=== PATIENT | male | born 1965 | race Caucasian/White ===

== ENCOUNTER 2018-05-25 18:02 | Emergency (ER) | payer MEDICARE ==
[~2018-05-25] VITALS: Ht 172.7 cm; Wt 145.2 kg
--- OUTSIDE RECORDS SUMMARY | ~2018-05-25 | XMS | Encounter Summary ---
Demographics + + + | Address | [address] | | | [place] [address] | + + + | Home Phone | | + + + | Preferred Language | Unknown | + + + | Marital Status | Single | + + + | Episcopal Affiliation | CHR | + + + | Race | White | + + + | Ethnic Group | Not or | + + + Author + + + | Author | [facility] | + + + | Organization | [facility] | + + + | Address [...] [place], | | | | | [place] [address] | | + + + + + Care Team Providers + +------+ + | Care Healthcare Advisory Services Manager Name | Role | Phone | + +------+ + | Thalia Georges MD | PCP | | + +------+ + Reason for Visit + + + | Reason | Comments | + + + | Refill Request | | + + + Encounter Details +--------+--------+ + + + | Date | Type | Department | Care Team | Description | +--------+--------+ + + + | 05/15/ | Refill | [facility] | Thalia Georges | Refill Request | | 2018 | | Medical Clinic | MD Fab[address] | | | | | Internal Medicine | [place], | | | | | [address] | [place] [address] | | | | | [place], [place] | [phone] | | | | | [address] | | | | | | [phone] | | | +--------+--------+ + + + Social History + +-------+ [...] | 2017 | Visit | MD Pietro [address] | | | | | | [place] | | | | | | [place] [address] | | | | | | [phone] | | | | | | | | +--------+---------+ + + + | 09/30/ | Office | Hematology & | Vonda Wang, | | | 2017 | Visit | Oncology | [address] | | | | | | [place] | | | | | | [address] | | | | | | [phone] | | | | | | | | +--------+---------+ + + + as of this encounter Visit Diagnoses Not on filein this encounter"
--- OUTSIDE RECORDS SUMMARY | ~2018-05-25 | XMS | Encounter Summary ---
Demographics + + + | Address | [address] | | | [place] [address] | + + + | Home Phone | | + + + | Preferred Language | Unknown | + + + | Marital Status | Single | + + + | Yarsani Affiliation | CHR | + + + | Race | White | + + + | Ethnic Group | Not or | + + + Author + + + | Author | [facility] | + + + | Organization | [facility] | + + + | Address [...] [place], | | | | | [place] [address] | | + + + + + Care Team Providers + +------+ + | Care Social Service Liaison Name | Role | Phone | + [...] Description | +--------+--------+ + + + | 03/28/ | Refill | [facility] | Josee Diamond MD | Refill Request | | 2018 | | Medical Clinic | [address] | | | | | Internal Medicine | [place], [place] | | | | | [address] | [address] | | | | | [place], [place] | [phone] | | | | | [address] | | | | | | [phone] | | | +--------+--------+ + + + [...] [place] | | | | | | [place] | | | | | | [place] [address] | | | | | | [phone] | | | | | | | | +--------+---------+ + + + | 09/30/ | Office | Hematology & | Vonda Wang, | | | 2017 | Visit | Oncology | [address] | | | | | | [place] | | | | | | [address] | | | | | | [phone] | | | | | | | | +--------+---------+ + + + as of this encounter Visit Diagnoses Not on filein this encounter"
--- OUTSIDE RECORDS SUMMARY | ~2018-05-25 | XMS | Encounter Summary ---
Demographics + + + | Address | [address] | | | [place] [address] | + + + | Home Phone | | + + + | Preferred Language | Unknown | + + + | Marital Status | Single | + + + | Yazidi Affiliation | CHR | + + + | Race | White | + + + | Ethnic Group | Not or | + + + Author + + + | Author | [facility] | + + + | Organization | [facility] | + + + | [...] [place], | | | | | [place] [address] | | + + + + + Care Team Providers + +------+ + | Care Ultrasonic Tester Name | Role | Phone | + +------+ + | Thalia Georges MD | PCP | | + +------+ + Reason for Visit + + + | Reason | Comments | + + + | Refill Request | [place] | + + + Encounter Details +--------+--------+ + + + | Date | Type | Department | Care Team | Description | +--------+--------+ + + + | 03/28/ | Refill | [facility] | Celestino Porras MD | Refill Request | | 2018 | | Medical Clinic | [address] | ([place]) | | | | Cardiology [address] | [address] [place], | | | | | [address] | [place] [address] | | | | | [place], [place] | [phone] | | | | | [address] | | | | | | [phone] | | | +--------+--------+ + + + [...] | | | 2017 | Visit | Danyelle Conn MD [address] | | | | | | [place] | | | | | | [place] [address] | | | | | | [phone] | | | | | | | | +--------+---------+ + + + | 09/30/ | Office | Hematology & | Vonda Wang | | | 2017 | Visit | Oncology | [address] | | | | | | [place] | | | | | | [address] | | | | | | [phone] | | | | | | | | +--------+---------+ + + + as of this encounter Visit Diagnoses Not on filein this encounter"
--- OUTSIDE RECORDS SUMMARY | ~2018-05-25 | XMS | Encounter Summary ---
Demographics + + + | Address | [address] | | | [place] [address] | + + + | Home Phone | | + + + | Preferred Language | Unknown | + + + | Marital Status | Single | + + + | Hindu Affiliation | CHR | + + + | Race | White | + + + | Ethnic Group | Not or | + + + Author + + + | Author | [facility] | + + + | Organization | [facility] | + + + | Address [...] [place], | | | | | [place] [address] | | + + + + + Care Team Providers + +------+ + | Care Auxiliary Equipment Operator Name | Role | Phone | + +------+ + | Thalia Georges MD | PCP | | + +------+ + Encounter Details +--------+ + + + + | Date | Type | Department | Care Team | Description | +--------+ + + + + | 09/16/ | Procedure | Diagnostic Imaging | | | | 2016 | Pass | at [facility] | | | | | | [address] [place] [address] | | | | | | [place] | | | | | | [address] | | | +--------+ + + + [...] | | | | | | [place] [address] | | | | | | [phone] | | | | | | | | +--------+---------+ + + + | 09/30/ | Office | Hematology & | Vonda Wang, | | | 2017 | Visit | Oncology | [address] | | | | | | [place] | | | | | | [address] | | | | | | [phone] | | | | | | | | +--------+---------+ + + + as of this encounter Visit Diagnoses Not on filein this encounter"
--- OUTSIDE RECORDS SUMMARY | ~2018-05-25 | XMS | Encounter Summary ---
Demographics + + + | Address | [address] | | | [place] [address] | + + + | Home Phone | | + + + | Preferred Language | Unknown | + + + | Marital Status | Single | + + + | Episcopalian Affiliation | CHR | + + + | Race | White | + + + | Ethnic Group | Not or | + + + Author + + + | Author | [facility] | + + + | Organization | [facility] | + + + | [...] [place], | | | | | [place] [address] | | + + + + + Care Team Providers + +------+ + | Care Lastex Thread Winder Name | Role | Phone | + +------+ + | Thalia Georges MD | PCP | | + +------+ + Encounter Details +--------+ + + + + | Date | Type | Department | Care Team | Description | +--------+ + + + + | 05/06/ | Document-Sc | [facility] | Vonda Wang, | | | 2018 | anned | Center - Medical | [address] | | | | | Oncology [address] | [place], [place] | | | | | Street The | [address] | | | | | [place], [place] | [phone] | | | | | [address] | | | | | | [phone] | | | +--------+ + + + [...] | | | | | | [place] [address] | | | | | | [phone] | | | | | | | | +--------+---------+ + + + | 09/30/ | Office | Hematology & | Vonda Wang, | | | 2017 | Visit | Oncology | [address] | | | | | | [place] | | | | | | [address] | | | | | | [phone] | | | | | | | | +--------+---------+ + + + as of this encounter Visit Diagnoses Not on filein this encounter"
--- OUTSIDE RECORDS SUMMARY | ~2018-05-25 | XMS | Encounter Summary ---
Demographics + + + | Address | [address] | | | [place] [address] | + + + | Home Phone | | + + + | Preferred Language | Unknown | + + + | Marital Status | Single | + + + | Cheondoism Affiliation | CHR | + + + | Race | White | + + + | Ethnic Group | Not or | + + + Author + + + | Author | [facility] | + + + | Organization | [facility] | + + + | [...] [place], | | | | | [place] [address] | | + + + + + Care Team Providers + +------+ + | Care Swatch Clerk Name | Role | Phone | + +------+ + | Thalia Georges MD | PCP | | + +------+ + Reason for Referral Diagnostic Testing (Routine) + +--------+ + + + + | Status | Reason | Specialty | Diagnoses / | Referred By | Referred To | | | | | Procedures | Contact | Contact | + +--------+ + + + + | New Request | | Radiology | Diagnoses | Joey, | | | | | | Personal | Sherrie Ferreira NP | | | | | | history of | [address] | | | | | | colon | [address] | | | | | | cancer, | [place] | | | | | | stage IV | [address] | | | | | | Left upper | Phone: | | | | | | quadrant | [phone] | | | | | | pain | Fax: | | | | | | Procedures | [phone] | | | | | | CT ABDOMEN | | | | | | | AND PELVIS W | | | | | | | IV CONTRAST | | | + +--------+ + + + + Reason for Visit + + + | Reason | Comments | + + + | Follow-up visit | Malignant Neoplasm of Colon | + + + Encounter Details +--------+---------+ + + + | Date | Type | Department | Care Team | Description | +--------+---------+ + + + | 03/28/ | Office | [facility] | Sherrie Cook, WRECKER DRIVER | Personal history of | | 2018 | Visit | Center - Medical | [address] | colon cancer, stage | | | | Oncology [address] | [place] [address] | IV (Primary Dx); | | | | Street The | [phone] | Left upper quadrant | | | | [place] | | pain | | | | [address] | | | | | | [phone] | | | +--------+---------+ + + + Social History + +-------+ [...] + + + as of this encounter Last Filed Vital Signs + + + + | Vital Sign | Reading | Time Taken | + + + + | Blood Pressure | 169/99 | 03/28/2018 11:46 AM PDT | + + + + | Pulse | 100 | 03/28/2018 11:46 AM PDT | + + + + | Temperature | 36.8 C (98.2 F) | 03/28/2018 11:46 AM PDT | + + + + | Respiratory Rate | - | - | + + + + | Oxygen Saturation | 96% | 03/28/2018 11:46 AM PDT | + + + + | Inhaled Oxygen | - | - | | Concentration | | | + + + + | Weight | 142.4 kg (313 lb | 03/28/2018 11:46 AM PDT | | | 14.4 oz) | | + + + + | Height | 172.7 cm (5' 7.99") | 03/28/2018 11:46 AM PDT | + + + + | Body Mass Index | 47.74 | 03/28/2018 11:46 AM PDT | + + + + in this encounter Progress Notes Sherrie Cook NP - 03/28/2018 11:45 AM PDTFormatting of this note may be different from alexey jett. DATE OF OFFICE VISIT: March 28, 2018 REASON FOR OFFICE VISIT: Continued monitoring for recurrent metastatic colon cancer. DIAGNOSES: 1. Stage IIIC (T4b N1b M0) colon cancer diagnosed 2006. 2. Multiple pulmonary metastasis resected September 16, 2013. 3. History of avascular necrosis of the left femoral head, status post hip replacement. HISTORY OF TREATMENT: Adjuvant chemotherapy In 2006 and again, completed treatment in Apr. CT chest with contrast on February 04, 2017, showed no evidence of recurrent disease; h owever, CEA rising at that time. INTERVAL HISTORY and REVIEW OF SYSTEMS:: Vincent continues to struggle with substance abuse. He did acknowledge use of marijuana prior to this visit. He has not taken any of his medic ations today. It is unclear if he has any these medications at home or not He denies any he adaches or dizziness. He denies any unusual bruising or bleeding. He denies any problems wi th nausea, vomiting, constipation or diarrhea. He denies any unusual shortness of breath an d has not had hemoptysis. He denies chest pain and heart palpitations. He continues with si gnificant peripheral neuropathy. He is unaccompanied today. PHYSICAL EXAM: BP 169/99 | Pulse 100 | Temp (Src) 36.8 C (98.2 F) (Tympanic) | Ht 1.72 7 m (5' 7.99") | Wt 142.4 kg (313 lb 14.4 oz) | SpO2 96% | BMI 47.74 kg/(m^2) ECO GENERAL: A/O No acute distress. Slightly unkept. Obese. HEENT: Normocephalic. Sclerae anicteric. Conjunctivae clear. Oral mucosa is pink and moist without evidence of thrush or lesions. NECK: Supple. LUNGS: CTA. No wheezes or crackles. HEART: Regular rate and rhythm. ABDOMEN: Soft. Active bowel tones. Nontender. EXTREMITIES: No peripheral edema. NEUROLOGIC: No focal deficits. Normal gait. PSYCHIATRIC: Pleasant, cooperative, appropriate. Appointment on 03/12/2018 Component Date Value Ref Range Status GLUCOSE, PLASMA (LAB) 03/12/2018 148* 70 - 105 mg/dL Final BUN, PLASMA (LAB) 03/12/2018 7 6 - 26 mg/dL Final CREATININE, PLASMA 03/12/2018 0.9 0.9 - 1.3 mg/dL Final SODIUM, PLASMA (LAB) 03/12/2018 137 137 - 146 mmol/L Final POTASSIUM, PLASMA (LAB) 03/12/2018 5.0 3.4 - 5.3 mmol/L Final CHLORIDE, PLASMA (LAB) 03/12/2018 94* 96 - 106 mmol/L Final TOTAL CO2, PLASMA (LAB) 03/12/2018 29 18 - 30 mmol/L Final CALCIUM, PLASMA (LAB) 03/12/2018 9.1 8.5 - 10.8 mg/dL Final BILIRUBIN TOTAL 03/12/2018 0.3 0.2 - 1.2 mg/dL Final TOTAL PROTEIN, PLASMA (LAB) 03/12/2018 7.5 5.8 - 8.5 g/dL Final ALBUMIN, PLASMA (LAB) 03/12/2018 4.0 3.5 - 5.0 g/dL Final ALK PHOS 03/12/2018 94 32 - 180 U/L Final AST(SGOT) 03/12/2018 26 10 - 41 U/L Final ALT (SGPT) 03/12/2018 27 7 - 51 U/L Final EGFR - [place] CITIZ[place] 03/12/2018 >60 >60 mL/min Final EGFR NON -[place] CITIZEN 03/12/2018 >60 >60 mL/min Final ANION GAP 03/12/2018 14 12 - 20 mmol/L Final BUN/CREATININE RATIO 03/12/2018 8 6 - 20 Final FASTING 8 HOURS OR MORE? 03/12/2018 No Final CEA-CARCINOEMBRYONIC AG, SERUM 03/12/2018 2.4 ng/mL Final WBC COUNT 03/12/2018 8.9 3.5 - 10.8 K/cu mm Final RED CELL COUNT 03/12/2018 4.50 4.50 - 6.00 M/cu mm Final HEMOGLOBIN 03/12/2018 14.1 13.5 - 17.5 g/dL Final HEMATOCRIT 03/12/2018 40.1* 41.0 - 53.0 % Final MCV 03/12/2018 89.1 80.0 - 96.0 fL Final MCH 03/12/2018 31.4 28.0 - 34.7 pg Final MCHC 03/12/2018 35.3 33.0 - 35.5 g/dL Final RDW 03/12/2018 13.8 11.5 - 15.0 % Final PLATELET COUNT 03/12/2018 332 150 - 400 K/cu mm Final MPV 03/12/2018 6.0* 7.5 - 11.2 fL Final NEUTROPHIL % 03/12/2018 63.0 50.0 - 70.0 % Final LYMPHOCYTE % 03/12/2018 22.6 18.0 - 42.0 % Final MONOCYTE % 03/12/2018 6.9 3.5 - 9.0 % Final EOS % 03/12/2018 4.0* 1.0 - 3.0 % Final BASO % 03/12/2018 3.5* 0.0 - 2.0 % Final NEUTROPHIL # 03/12/2018 5.60 1.80 - 7.70 K/cu mm Final LYMPHOCYTE # 03/12/2018 2.00 1.00 - 4.80 K/cu mm Final MONOCYTE # 03/12/2018 0.60 0.10 - 0.90 K/cu mm Final EOS # 03/12/2018 0.40 0.00 - 0.50 K/cu mm Final BASO # 03/12/2018 0.30* 0.00 - 0.10 K/cu mm Final IMPRESSION: This is a 52-year-old gentleman with a history of recurrent colon cancer. He continues to be followed and over the last year has had a slightly elevated CEA which I think this is lik rosalinda related to other non oncologic issues (smoking, etc). He is without evidence of cancer r ecurrence per exam. CT of his chest showed no evidence recurrence or new disease. I will o rder a CT of the abdomen pelvis for complete evaluation. He is encouraged to take his prescribed medications. PLAN: 1. CT of Abdomen/pelvis. 2. Labs and CT before return visit in 6 months. 3. Return sooner should need arise. Jeanie Ruffin MA - 03/28/2018 11:45 AM PDTFormatting of this note may be different from the original. Patient presented in clinic today for Chief Complaint Patient presents with Follow-up visit Malignant Neoplasm of Colon BP 169/99 | Pulse 100 | Temp (Src) 36.8 C (98.2 F) (Tympanic) | Ht 1.727 m (5' 7.99") | Wt 142.4 kg (313 lb 14.4 oz) | SpO2 96% | BMI 47.74 kg/(m^2) Allergies Allergen Reactions Penicillins Hives Medications history reviewed. A beef farmer was offered to the patient and they declined. Jeanie Ruffin MA in this encounter Plan of Treatment +--------+---------+ + + + | Date | Type | Specialty | Care Team | Description | +--------+---------+ + + + | 07/10/ | Office | Internal Medicine | Thalia Georges | | | 2017 | Visit | MD [address]ro Ace | | | | | | [place] | | | | | | [place] [address] | | | | | | [phone] | | | | | | | | +--------+---------+ + + + | 09/30/ | Office | Hematology & | Vonda Wang | | | 2017 | Visit | Oncology | [address] | | | | | | [place] | | | | | | [address] | | | | | | [phone] | | | | | | | | +--------+---------+ + + + + +--------+ + + | Name | Priori | Associated Diagnoses | Order Schedule | | | ty | | | + +--------+ + + | CT ABDOMEN AND PELVIS W IV | Routin | Personal history | Expected: | | CONTRAST | e | of colon cancer, | 03/28/2018, Expires: | | | | stage IV Left upper | 04/27/2019 | | | | quadrant pain | | + +--------+ + + as of this encounter Visit Diagnoses + + | Diagnosis | + + | Personal history of colon cancer, stage IV - Primary | + + | Personal history of malignant neoplasm of large intestine | + + | Left upper quadrant pain | + + | Abdominal pain, left upper quadrant | + +
--- OUTSIDE RECORDS SUMMARY | ~2018-05-25 | XMS | Encounter Summary ---
Demographics + + + | Address | [address] | | | [place] [address] | + + + | Home Phone | | + + + | Preferred Language | Unknown | + + + | Marital Status | Single | + + + | Jewish Affiliation | CHR | + + + | Race | White | + + + | Ethnic Group | Not or | + + + Author + + + | Author | [facility] | + + + | Organization | [facility] | + + + | [...] [place], | | | | | [place] [address] | | + + + + + Care Team Providers + +------+ + | Care Automobile Technician Name | Role | Phone | + +------+ + | Thalia Georges MD | PCP | | + +------+ + Encounter Details +--------+ + + + + | Date | Type | Department | Care Team | Description | +--------+ + + + + | 03/12/ | Documentati | [facility] | Prieto Sarkar, | | | 2018 | on | Center [address] | [address] | | | | | [place], | [place] | | | | | [place] [address] | [address] | | | | | [phone] | | | +--------+ + + + [...] Description | +--------+---------+ + + + | 09/27/ | Office | Internal Medicine | Thalia Georges | | | 2017 | Visit | | MD [address] | | | | | | [place], | | | | | | [place] [address] | | | | | | [phone] | | | | | | | | +--------+---------+ + + + | 09/30/ | Office | Hematology & | Vonda Wang, | | | 2017 | Visit | Oncology | [address] | | | | | | [place] | | | | | | [address] | | | | | | [phone] | | | | | | | | +--------+---------+ + + + as of this encounter Visit Diagnoses Not on filein this encounter"
--- OUTSIDE RECORDS SUMMARY | ~2018-05-25 | XMS | Clinical Summary ---
Demographics + + + | Address | [address] | | | [place] [address] | + + + | Home Phone | | + + + | Preferred Language | Unknown | + + + | Marital Status | Single | + + + | Latter Day Affiliation | CHR | + + + | Race | White | + + + | Ethnic Group | Not or | + + + Author + + + | Author | [facility] | + + + | Organization | [facility] | + + + | Address | Unknown | + + + | Phone | Unavailable | + + + Support + + + + + | Name | Relationship | Address | Phone | + + + + + | WAYNE COLEY | ECON | [address] | | | [place] | | [place], | | | | | [place] [address] | | + + + + + Care Team Providers + +------+ + | Care Car Pick Up Driver Name | Role | Phone | + +------+ + | Thalia Georges MD | PP | | + +------+ + Source Comments [facility] is fully live on both [facility] and [facility] Allergies + + + + + + | Active Allergy | Reactions | Severity | Noted | Comments | | | | | Date | | + + + + + + | Penicillins | Hives | | 09/01/20 | | | | | | 15 | | + + + + + + Current Medications + + +---------+---------+------+------+-------+ | Prescription | Sig. | Disp. | Refills | Star | End | Statu | | | | | | t | Date | s | | | | | | Date | | | + + +---------+---------+------+------+-------+ | [facility]NA | | | | | | Activ | | | | | | | | e | + + +---------+---------+------+------+-------+ | aspirin 325 mg | Take 1 tablet by | 90 | 0 | 07/2 | | Activ | | oral tablet | mouth once daily. | tablet | | 5/20 | | e | | | | | | 18 | | | + + +---------+---------+------+------+-------+ | mupirocin 2 % | Apply to affected | 30 g | 5 | 07/2 | | Activ | | topical | area three times | | | 5/20 | | e | | ointmentIndications: | daily. Apply to | | | 18 | | | | Folliculitis | affected area. | | | | | | | | Indications: | | | | | | | | Folliculitis | | | | | | + + +---------+---------+------+------+-------+ | albuterol (PROAIR | Inhale 1-2 puffs by | 3 | 2 | 08/0 | | Activ | | HFA) 90 | mouth every six | Inhaler | | 2/20 | | e | | mcg/actuation | hours as needed. | | | 18 | | | | inhalation HFA | | | | | | | | aerosol inhaler | | | | | | | + + +---------+---------+------+------+-------+ | dilTIAZem CD 24 | Take 1 capsule by | 90 | 0 | 08/0 | | Activ | | hour release 240 mg | mouth once daily. | capsule | | 2/20 | | e | | oral | | | | 18 | | | | capsule,extended | | | | | | | | release 24hr | | | | | | | + + +---------+---------+------+------+-------+ | | Inhale 1 puff two | 3 | 1 | 08/0 | | Activ | | fluticasone-salmeter | times daily. | Inhaler | | 2/20 | | e | | ol (ADVAIR DISKUS) | | | | 18 | | | | 250-50 mcg/dose | | | | | | | | inhalation blister | | | | | | | | with device | | | | | | | + + +---------+---------+------+------+-------+ | glimepiride 2 mg | Take 1 tablet by | 90 | 0 | 08/0 | | Activ | | oral tablet | mouth once daily | tablet | | 2/20 | | e | | | with breakfast. | | | 18 | | | + + +---------+---------+------+------+-------+ | metoprolol | TAKE 1/2 TAB BY | 90 | 0 | 08/0 | | Activ | | tartrate 100 mg oral | MOUTH TWICE A DAY | tablet | | 2/20 | | e | | tablet | WITH MEALS | | | 18 | | | + + +---------+---------+------+------+-------+ | potassium chloride | Take 1 tablet by | 90 | 0 | 08/0 | | Activ | | SR 20 mEq oral | mouth once daily. | tablet | | 2/20 | | e | | tablet,ER | | | | 18 | | | | particles/crystals | | | | | | | + + +---------+---------+------+------+-------+ | sitaGLIPtin | Take 1 tablet by | 90 | 0 | 08/0 | | Activ | | (JANUVIA) 50 mg oral | mouth once daily. | tablet | | 2/20 | | e | | tablet | | | | 18 | | | + + +---------+---------+------+------+-------+ | torsemide 20 mg | Take 1 tablet by | 90 | 0 | 08/0 | | Activ | | oral tablet | mouth once daily. | tablet | | 2/20 | | e | | | | | | 18 | | | + + +---------+---------+------+------+-------+ | traZODone 100 mg | take 2 tablets by | 180 | 0 | 08/0 | | Activ | | oral tablet | mouth at bedtime | tablet | | 2/20 | | e | | | | | | 18 | | | + + +---------+---------+------+------+-------+ Active Problems + + | Patient Care Coordination Note | + + | CHW CARE PLANIdentified Problems/Needs: Pt referred by [facility] for transportation | | assistance. Action Items: Contact pt to see if he has transportation needs. Intervention | | Progress: 08/10/16 Spoke with pt who stated that the [employer]i was having problems with | | their cabs the other day which caused him to not make his appt. Educated pt on using | | Link and some of the advantages and provided Link tickets along with 2 taxi vouchers for | | future appt. Mailed out cab vouchers and link tickets. 08/21/16 Spoke with pt who | | stated that he hasn't received anything in the mail yet. Pt will return my call tomorrow | | to see if he has received anything in the mail. 08/27/16 Spoke with pt who stated that | | he still hasn't received the vouchers or Link tickets. Will leave another set of | | vouchers and tickets at 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 09/13/16 Left to see if pt was able to fruit picker machine operator vouchers and Link tickets to | | help pt with his transportation. 10/02/16 Spoke with pt who stated that he has received | | the Link tickets and the taxi vouchers to help with his transportation needs. Will | | follow up in the future to make sure pt has adequate transportation. 11/13/16 Attempted | | to contact pt, not yet set up. Will try to follow up with pt about needs. 11/22/16 | | Spoke with pt who stated that he could use some more Link tickets to help him get to his | | appts. He has recently been canceling appts due to the weather. Mailed one book of Link | | tickets. 12/26/16 Attempted to contact pt and see how he is doing with transportation. | | Next Anticipated Follow Up: Transportation | + + + + + | Problem | Noted Date | + + + | Left upper quadrant pain | 03/28/2018 | + + + | Port catheter in place | 12/04/2016 | + + + | S/P hip replacement | 12/03/2016 | + + + | Obstructive sleep apnea | 10/20/2015 | + + + | Hyponatremia | 10/11/2015 | + + + | Paroxysmal atrial fibrillation (HCC) | 08/15/2011 | + + + | Recurrent skin furuncles | 08/15/2011 | + + + + + | Overview: Recurrent MRSA skin infections | + + + + + | Type 2 diabetes mellitus (HCC) | 06/15/2011 | + + + | Alcohol dependence, episodic drinking behavior (HCC) | 09/09/2007 | + + + | Moderate persistent asthma | 09/09/2007 | + + + | Personal history of colon cancer, stage IV | 09/09/2007 | + + + + + | Overview: Dx March 2007, Stage IIIB appendiceal cancer, 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/2013, | | s/p resection and additional chemo | + + + + + | Gastroesophageal reflux disease | 09/09/2007 | + + + Resolved Problems + + + + | Problem | Noted | Resolved | | | Date | Date | + + + + | Adiposity | 03/08/20 | | | | 15 | 6 | + + + + Encounters +--------+ + + + + | Date | Type | Specialty | Care Team | Description | +--------+ + + + + | 05/15/ | Refill | | Thalia Georges | Refill Request | | 2017 | | | MD Fabien | | +--------+ + + + + | 05/13/ | Telephone | | Thalia Georges | Care Management | | 2017 | | | MD [place] | (orders for ETOH | | | | | | care facility in | | | | | | [place] ) | +--------+ + + + + | 05/07/ | Refill | | Thalia Georges | Refill Request | | 2017 | | | MD [place] | | +--------+ + + + + | 05/06/ | Document-Sc | | Glory Salinas, | | | 2017 | anned | | | | +--------+ + + + + 05/05/ | Telephone | | Thalia Georges | Referral To Rehab | | 2017 | | | MD [place] | Medicine | +--------+ + + + + 05/05/ | Telephone | | Glory Salinas, | Other (port flu) | | 2017 | | Danyelle JAQUEZ | | +--------+ + + + + | 05/05/ | Refill | | Thalia Georges | Refill Request | | 2018 | | | B, MD | | +--------+ + + + + | 04/22/ | Document-Sc | | Thalia Georges | | | 2018 | anned | | B, | | +--------+ + + + + | 04/22/ | Telephone | | Thalia Georges | Medication requested | | 2018 | | | B, MD | | +--------+ + + + + | 04/08/ | Office | | Thalia Georges | Alcohol dependence, | | 2018 | Visit | | MD Fabien | episodic drinking | | | | | | behavior (HCC) | | | | | | (Primary Dx); Type 2 | | | | | | diabetes mellitus | | | | | | (HCC); Skin ulcer of | | | | | | upper arm with fat | | | | | | layer exposed ([facility]); | | | | | | Need for | | | | | | yrgxtevssz-auhtdpr-c | | | | | | ertussis (Tdap) | | | | | | vaccine | +--------+ + + + + | 03/28/ | Clinical | | | Follow-up visit | | 2018 | Support | | | | | | Staff | | | | +--------+ + + + + | 03/28/ | Office | | Sherrie Cook NP | Personal history of | | 2018 | Visit | | | colon cancer, stage | | | | | | IV (Primary Dx); | | | | | | Left upper quadrant | | | | | | pain | +--------+ + + + + 03/28/ | Refill | | Josee Diamond MD | Refill Request | | 2018 | | | | | +--------+ + + + + | 03/28/ | Refill | | Celestino Porras MD | Refill Request | | 2018 | | | | (Torsemide) | +--------+ + + + + | 03/25/ | Document-Sc | | Baudilio Zepeda, | | | 2017 | anned | | | | +--------+ + + + + | 03/18/ | Document-Sc | | Baudilio Zepeda, | | | 2017 | anned | | | | +--------+ + + + + | 03/12/ | Lab | | | | | 2017 | | | | | +--------+ + + + + | 03/12/ | Clinical | | | Implantable venous | | 2018 | Support | | | access port (access | | | Staff | | | for CT) | +--------+ + + + + | 03/12/ | Hospital | | Glory Salinas, | | | 2017 | Encounter | | | | +--------+ + + + + | 03/12/ | Documentati | | Prieto Sarkar, | | | 2017 | on | | LMT | | +--------+ + + + + | 03/05/ | Telephone | | Thalia Georges | Mental health | | 2017 | | | MD Fabien | disorder | +--------+ + + + + | 09/16/ | Procedure | | | | | 2016 | Pass | | | | +--------+ + + + + from Last 3 Months Immunizations + + + + | Name | Dates Previously Given | Next Due | + + + + | Flu trivalent | 10/13/2015, 08/09/2014 | | | injectable pfree | | | + + + + | Influenza Injectable | 08/15/2017 | | | Quadrivalent (IIV4 | | | | P-Free) | | | + + + + | Influenza, seasonal, | 07/13/2013, 08/15/2011, 08/15/2011 | | | intradermal pfree | | | + + + + | Pneumococcal 23 | 09/21/2013, 10/14/2008 | | + + + + | Tdap | 04/08/2018 | | + + + + Family History + + +------+ + | Medical History | Relation | Name | Comments | + + +------+ + | Heart Disease | Father | | stent | + + +------+ + | Parkinson's Disease | Father | | | + + +------+ + | Skin Cancer | Father | | | + + +------+ + + +------+--------+ + | Relation | Name | Status | Comments | + +------+--------+ + | Father | | | | + +------+--------+ + Social History + +-------+ +--------+------+ | Tobacco Use | Types | Packs/Day | Years | Date | | | | | Used | | + +-------+ +--------+------+ | Never Smoker | | | | | + +-------+ +--------+------+ + +------+---+---+ | Smokeless Tobacco: | Chew | | | | Current User | | | | + +------+---+---+ + + | Tobacco Cessation: Ready to Quit: No | | Comments: marijuana and chews | + [...] on file | | + + + Last Filed Vital Signs + + + + | Vital Sign | Reading | Time Taken | + + + + | Blood Pressure | 122/58 | 04/08/2018 2:52 PM PDT | + + + + | Pulse | 83 | 04/08/2018 2:52 PM PDT | + + + + | Temperature | 36.8 C (98.2 F) | 03/28/2018 11:46 AM PDT | + + + + | Respiratory Rate | 22 | 03/12/2018 11:30 AM PDT | + + + + | Oxygen Saturation | 98% | 04/08/2018 2:52 PM PDT | + + + + | Inhaled Oxygen | - | - | | Concentration | | | + + + + | Weight | 143.8 kg (317 lb) | 04/08/2018 2:52 PM PDT | + + + + | Height | 172.7 cm (5' 7.99") | 03/28/2018 11:46 AM PDT | + + + + | Body Mass Index | 48.21 | 04/08/2018 2:52 PM PDT | + + + + Plan of Treatment +--------+---------+ + + + | Date | Type | Specialty | Care Team | Description | +--------+---------+ + + + | 07/10/ | Office | | Thalia Georges | | | 2018 | Visit | | MD Pietro Conn | | | | | | [place], | | | | | | [place] [address] | | | | | | [phone] | | | | | | | | +--------+---------+ + + + | 09/30/ | Office | | Glory Salinas, | | | 2017 | Visit | | MD [address] | | | | | | [facility] [place] | | | | | | [address] | | | | | | [phone] | | | | | | | | +--------+---------+ + + + + + + + + | Health Maintenance | Due Date | Last Done | Comments | + + + + + | DIABETIC EYE EXAM | | | | | | 7 | | | + + + + + | Zoster (Shingles) | | | | | vaccination (1 of 2) | 7 | | | + + + + + | HEMOGLOBIN A1C | | 11/14/2017, 08/15/2017, | | | | 8 | 12/03/2016, Additional history | | | | | exists | | + + + + + | INFLUENZA VACCINE | | 08/15/2017, 08/15/2017, | | | (FLU SHOT) | 8 | 12/03/2016 (Declined), | | | | | Additional history exists | | + + + + + | TOBACCO CESSATION | | 11/14/2017 | | | INTERVENTION | 9 | | | + + + + + | URINE MICROALBUMIN | | 11/14/2017, 05/29/2016, | | | | 9 | 12/04/2011 | | + + + + + | DEPRESSION SCREEN | | 01/30/2018, 01/30/2018, | | | | 9 | 01/30/2018, Additional history | | | | | exists | | + + + + + | SUBSTANCE ABUSE | | 01/30/2018, 03/06/2017 | | | SCREENING | 9 | | | + + + + + | CREATININE | | 03/12/2018, 11/14/2017, | | | | 9 | 09/13/2017, Additional history | | | | | exists | | + + + + + | MONOFILAMENT FOOT | | 03/06/2017 | Postponed from | | EXAM | 9 | | 03/06/2018 (Other) | + + + + + | CHOLESTEROL | | 11/14/2017 | | | SCREENING | 3 | | | + + + + + | Diphtheria,Tetanus,P | | 04/08/2018 | | | ertussis | 8 | | | | (DTaP/Tdap/Td) (2 - | | | | | Td) | | | | + + + + + | Pneumococcal (Adult) | Completed | 09/21/2013, 10/14/2008 | | + + + + + | HIV SCREEN | Completed | 08/15/2017 | | + + + + + Results CT CHEST W CONTRAST (03/12/2018 11:26 AM) + + + | Specimen | Performing Laboratory | + + + | | [facility] | + + + + + | Narrative | + + | [address] | | [place] [address] | | [phone] Name: | | WYATT COLEY Phys: GLORY SALINAS : 1965 Sex: | | M CSN: [id number] MR# [id number] Exam Date: | | 03/12/2018 EXAM: CT CHEST WITH CONTRAST CLINICAL HISTORY: Follow-up colon | | cancer with lung metastases, status post resection in 2012. COMPARISON: Chest CT | | 01/25/2017. TECHNIQUE: Axial CT images were obtained through the chest following | | the uneventful administration of 75.0 ml of Omnipaque-300 IV contrast. Coronal and | | sagittal multiplanar reformations were obtained. Dose reduction techniques, | | including automatic exposure control (AutomA and SmartmA), organ dose modulation and | | adaptive statistical iterative reconstruction (ASiR) were utilized. FINDINGS: | | Visualized thyroid and lower neck: Normal. Heart and great vessels: There is no | | cardiomegaly. The thoracic aorta is normal in caliber. The pulmonary arteries are | | normal in caliber. Pleura: No right pleural effusion or thickening. There are | | stable postoperative changes within the inferior left hemithorax with chronic | | scarring/ blunting and a stable small loculated left pleural effusion. Pericardium: | | No pericardial effusion. Lymph nodes: No pathologically enlarged axillary, hilar or | | mediastinal lymphadenopathy. Central airways: Patent. Chest wall: Normal. | | Lung parenchyma: There are stable postoperative changes from prior left upper | | lobectomy, resulting in leftward mediastinal shift. There is no nodularity along the | | anastomotic staple line. Visualized upper abdomen: There is marked diffuse hepatic | | steatosis. Bones: Multilevel degenerative changes are present in the thoracic | | spine. There is no suspicious osteolytic or osteoblastic osseous metastasis. | | IMPRESSION: Stable postoperative changes from prior left upper lobectomy with leftward | | mediastinal shift and no evidence of recurrence or intrathoracic parenchymal or saúl | | metastasis. Incidental marked diffuse hepatic steatosis. REPORT SIGNED IN | | OTHER VENDOR SYSTEM 03/12/2018 Reported by: SELVIN CUMMINGS MD Electronically | | signed by: SELVIN CUMMINGS MD Transcribed Date/Time: 03/12/2018 21:39 | | Apparel Patternmaker: FLUENCY | + + + + | Procedure Note | + + | Interface, Radiology Results - 03/12/2018 9:43 PM PDT [address] | | [address] [place] [address] | | Name: WYATT COLEY Phys: GLORY SALINAS : 1965 Sex: M CSN: | | [id number] MR# [id number] Exam Date: 03/12/2018 EXAM:CT CHEST WITH CONTRAST | | CLINICAL HISTORY:Follow-up colon cancer with lung metastases, status post resection | | [id number]. COMPARISON:Chest CT 01/25/2017. TECHNIQUE:Axial CT images were obtained through | | the chest following theuneventful administration of 75.0 ml of Omnipaque-300 IV | | contrast.Coronal and sagittal multiplanar reformations were obtained. Dosereduction | | techniques, including automatic exposure control (AutomAand SmartmA), organ dose | | modulation and adaptive statisticaliterative reconstruction (ASiR) were utilized. | | FINDINGS:Visualized thyroid and lower neck: Normal. Heart and great vessels: There is | | no cardiomegaly. The thoracicaorta is normal in caliber. The pulmonary arteries are | | normal incaliber. Pleura: No right pleural effusion or thickening. There are | | stablepostoperative changes within the inferior left hemithorax withchronic scarring/ | | blunting and a stable small loculated left pleuraleffusion. Pericardium: No pericardial | | effusion. Lymph nodes: No pathologically enlarged axillary, hilar ormediastinal | | lymphadenopathy. Central airways: Patent. Chest wall: Normal. Lung parenchyma: There | | are stable postoperative changes from priorleft upper lobectomy, resulting in leftward | | mediastinal shift. Thereis no nodularity along the anastomotic staple line. Visualized | | upper abdomen: There is marked diffuse hepatic steatosis. Bones: Multilevel | | degenerative changes are present in the thoracicspine. There is no suspicious | | osteolytic or osteoblastic osseousmetastasis. IMPRESSION:Stable postoperative changes | | from prior left upper lobectomy withleftward mediastinal shift and no evidence of | | recurrence orintrathoracic parenchymal or saúl metastasis. Incidental markeddiffuse | | hepatic steatosis. REPORT SIGNED IN OTHER VENDOR SYSTEM 03/12/2018 Reported by: | | SELVIN CUMMINGS MD Electronically signed by: SELVIN CUMMINGS MD Transcribed | | Date/Time: 03/12/2018 21:39Transcriptionist: FLUENCY | |and SmartmA), organ dose modulation and adaptive statistical | |iterative reconstruction (ASiR) were utilized. | | | |FINDINGS: | |Visualized thyroid and lower neck: Normal. | | | |Heart and great vessels: There is no cardiomegaly. The thoracic | |aorta is normal in caliber. The pulmonary arteries are normal in | |caliber. | | | |Pleura: No right pleural effusion or thickening. There are stable | |postoperative changes within the inferior left hemithorax with | |chronic scarring/ blunting and a stable small loculated left pleural | |effusion. | | | |Pericardium: No pericardial effusion. | | | |Lymph nodes: No pathologically enlarged axillary, hilar or | |mediastinal lymphadenopathy. | | | |Central airways: Patent. | | | |Chest wall: Normal. | | | |Lung parenchyma: There are stable postoperative changes from prior | |left upper lobectomy, resulting in leftward mediastinal shift. There | |is no nodularity along the anastomotic staple line. | | | |Visualized upper abdomen: There is marked diffuse hepatic steatosis. | | | |Bones: Multilevel degenerative changes are present in the thoracic | |spine. There is no suspicious osteolytic or osteoblastic osseous | |metastasis. | | | |IMPRESSION: | |Stable postoperative changes from prior left upper lobectomy with | |leftward mediastinal shift and no evidence of recurrence or | |intrathoracic parenchymal or saúl metastasis. Incidental marked | |diffuse hepatic steatosis. | | | | | | REPORT SIGNED IN OTHER VENDOR SYSTEM 03/12/2018 | |Reported by: SEVLIN CUMMINGS MD | | | |Electronically signed by: SELVIN CUMMINGS MD | | | |Transcribed Date/Time: 03/12/2018 21:39 | |Apparel Patternmaker: FLUENCY | | | | | | | + + CBC W/DIFF, REFLEX (03/12/2018 10:33 AM) + + + | Specimen | Performing Laboratory | + + + | Blood | | + + + + + | Narrative | + + | The following orders were created for panel order CBC W/DIFF, REFLEX. | | Procedure | | Abnormality Status | | --------- | | ------ CBC AND AUTO | | DIFF[[id number]] Abnormal Final | | result Please view results for these tests on the | | individual orders. | + + CBC AND AUTO DIFF (03/12/2018 10:33 AM) + + + + | Component | Value | Ref Range | + + + + | WBC COUNT | 8.9 | 3.5 - 10.8 K/cu mm | + + + + | RED CELL COUNT | 4.50 | 4.50 - 6.00 M/cu mm | + + + + | HEMOGLOBIN | 14.1 | 13.5 - 17.5 g/dL | + + + + | HEMATOCRIT | 40.1 (L) | 41.0 - 53.0 % | + + + + | MCV | 89.1 | 80.0 - 96.0 fL | + + + + | MCH | 31.4 | 28.0 - 34.7 pg | + + + + | MCHC | 35.3 | 33.0 - 35.5 g/dL | + + + + | RDW | 13.8 | 11.5 - 15.0 % | + + + + | PLATELET COUNT | 332 | 150 - 400 K/cu mm | + + + + | MPV | 6.0 (L) | 7.5 - 11.2 fL | + + + + | NEUTROPHIL % | 63.0 | 50.0 - 70.0 % | + + + + | LYMPHOCYTE % | 22.6 | 18.0 - 42.0 % | + + + + | MONOCYTE % | 6.9 | 3.5 - 9.0 % | + + + + | EOS % | 4.0 (H) | 1.0 - 3.0 % | + + + + | BASO % | 3.5 (H) | 0.0 - 2.0 % | + + + + | NEUTROPHIL # | 5.60 | 1.80 - 7.70 K/cu mm | + + + + | LYMPHOCYTE # | 2.00 | 1.00 - 4.80 K/cu mm | + + + + | MONOCYTE # | 0.60 | 0.10 - 0.90 K/cu mm | + + + + | EOS # | 0.40 | 0.00 - 0.50 K/cu mm | + + + + | BASO # | 0.30 (H) | 0.00 - 0.10 K/cu mm | + + + + + + + | Specimen | Performing Laboratory | + + + | Blood | [facility] | | | [place] [address] | + + + CARCINOEMBRYONIC AG, SERUM (03/12/2018 10:33 AM) + +-------+ + | Component | Value | Ref Range | + +-------+ + | CEA-CARCINOEMBRYONIC | 2.4 | ng/mL | | AG, SERUM | | | + +-------+ + + + + | Specimen | Performing Laboratory | + + + | Blood | [facility] The | | | [place] [address] | + + + + + | Narrative | + + | Reference Range: Non-smokers: 0.0-3.0 ng/mL Smokers: 0.0-5.0 | | ng/mL | + + COMPLETE METABOLIC SET (NA,K,CL,CO2,BUN,CREAT,GLUC,CA,AST,ALT,BILI TOTAL,ALK PHOS,ALB,PROT TOTAL) (03/12/2018 10:33 AM) + +---------+ + | Component | Value | Ref Range | + +---------+ + | GLUCOSE, PLASMA | 148 (H) | 70 - 105 mg/dL | | (LAB) | | | + +---------+ + | BUN, PLASMA (LAB) | 7 | 6 - 26 mg/dL | + +---------+ + | CREATININE, PLASMA | 0.9 | 0.9 - 1.3 mg/dL | + +---------+ + | SODIUM, PLASMA (LAB) | 137 | 137 - 146 mmol/L | + +---------+ + | POTASSIUM, PLASMA | 5.0 | 3.4 - 5.3 mmol/L | | (LAB) | | | + +---------+ + | CHLORIDE, PLASMA | 94 (L) | 96 - 106 mmol/L | | (LAB) | | | + +---------+ + | TOTAL CO2, PLASMA | 29 | 18 - 30 mmol/L | | (LAB) | | | + +---------+ + | CALCIUM, PLASMA | 9.1 | 8.5 - 10.8 mg/dL | | (LAB) | | | + +---------+ + | BILIRUBIN TOTAL | 0.3 | 0.2 - 1.2 mg/dL | + +---------+ + | TOTAL PROTEIN, | 7.5 | 5.8 - 8.5 g/dL | | PLASMA (LAB) | | | + +---------+ + | ALBUMIN, PLASMA | 4.0 | 3.5 - 5.0 g/dL | | (LAB) | | | + +---------+ + | ALK PHOS | 94 | 32 - 180 U/L | + +---------+ + | AST(SGOT) | 26 | 10 - 41 U/L | + +---------+ + | ALT (SGPT) | 27 | 7 - 51 U/L | + +---------+ + | EGFR - | >60 | >60 mL/min | | [facility] | | | + +---------+ + | EGFR NON | >60 | >60 mL/min | | -[facility] | | | + +---------+ + | ANION GAP | 14 | 12 - 20 mmol/L | + +---------+ + | BUN/CREATININE RATIO | 8 | 6 - 20 | + +---------+ + | FASTING 8 HOURS OR | No | | | MORE? | | | + +---------+ + + + + | Specimen | Performing Laboratory | + + + | Blood | [address] [facility] The | | | [place] [address] | + + + + + | Narrative | + + | GFR is estimated using the MDRD equation recommended by the National Kidney Disease | | Education Program. Estimated GFR Interpretive Information: <60 mL/min/1.73 sq | | m Chronic Kidney Disease <15 mL/min/1.73 sq | | m Kidney Failure Estimated GFR greater that 60 mL/min/1.73 | | sq m is of limited clinical value. The MDRD equation is not valid in the following | | situations: - Patients under 18 years of age - Severe malnutrition or obesity - | | Vegetarian diet - Rapidly changing kidney function - Amputees, paraplegics, or other | | muscle-wasting diseses | + + from Last 3 Months Insurance + +--------+ +------+ + + | Payer | Benefi | Subscriber | Type | Phone | Address | | | t Plan | ID | | | | | | / | | | | | | | Group | | | | | + +--------+ +------+ + + | [employer] | MODA | xxxxxxxxx | PPO | [phone] | [address] | | | MEDICA | | | [phone] | [place] [address] | | | RE PPO | | | | | + +--------+ +------+ + + + +--------+ +--------+ + + | Guarantor Name | Accoun | Relation to | Date | Phone | Billing Address | | | t Type | Patient | of | | | | | | | | | | + +--------+ +--------+ + + | WYATT COLEY | Person | Self | [birth year] Home: | [address] | | | al/Fam | | 1965 | [phone] | [place] [address] | | | rell | | | [phone] | | + +--------+ +--------+ + +
--- OUTSIDE RECORDS SUMMARY | ~2018-05-25 | XMS | Encounter Summary ---
Demographics + + + | Address | [address] | | | [place] [address] | + + + | Home Phone | | + + + | Preferred Language | Unknown | + + + | Marital Status | Single | + + + | Advent Affiliation | CHR | + + + | Race | White | + + + | Ethnic Group | Not or | + + + Author + + + | Author | [facility] | + + + | Organization | [facility] | + + [...] [place], | | | | | [place] [address] | | + + + + + Care Team Providers + +------+ + | Care It Infrastructure Engineer Name | Role | Phone | + [...] | [address] | [place] [address] | | | | | [place], [place] | [phone] | | | | | [address] | | | | | | [phone] | | | +--------+ + + + [...] | | | | | | [place] [address] | | | | | | [phone] | | | | | | | | +--------+---------+ + + + | 09/30/ | Office | Hematology & | Vonda Wang, | | | 2017 | Visit | Oncology | [address] | | | | | | [place] | | | | | | [address] | | | | | | [phone] | | | | | | | | +--------+---------+ + + + as of this encounter Visit Diagnoses Not on filein this encounter"
--- OUTSIDE RECORDS SUMMARY | ~2018-05-25 | XMS | Encounter Summary ---
Demographics + + + | Address | [address] | | | [place] [address] | + + + | Home Phone | | + + + | Preferred Language | Unknown | + + + | Marital Status | Single | + + + | Judaism Affiliation | CHR | + + + | Race | White | + + + | Ethnic Group | Not or | + + + Author + + + | Author | [facility] | + + + | Organization | [facility] | + + + [...] [place], | | | | | [place] [address] | | + + + + + Care Team Providers + +------+ + | Care Wrapping Checker Name | Role | Phone | + [...] 2018 | | Medical Clinic | [address] | | | | | Internal Medicine | [place], [place] | | | | | [address] | [address] | | | | | [place], [place] | [phone] | | | | | [address] | | | | | | [phone] | | | +--------+--------+ + + + [...] | | | | | | [place] [address] | | | | | | [phone] | | | | | | | | +--------+---------+ + + + | 09/30/ | Office | Hematology & | Vonda Wang, | | | 2017 | Visit | Oncology | [address] | | | | | | [place] | | | | | | [address] | | | | | | [phone] | | | | | | | | +--------+---------+ + + + as of this encounter Visit Diagnoses Not on filein this encounter"
--- OUTSIDE RECORDS SUMMARY | ~2018-05-25 | XMS | Encounter Summary ---
Demographics + + + | Address | [address] | | | [place] [address] | + + + | Home Phone | | + + + | Preferred Language | Unknown | + + + | Marital Status | Single | + + + | Synagogue Affiliation | CHR | + + + | Race | White | + + + | Ethnic Group | Not or | + + + Author + + + | Author | [facility] | + + + | Organization | [facility] | + + + | [...] [place], | | | | | [place] [address] | | + + + + + Care Team Providers + +------+ + | Care Embedded Software Development Engineer Name | Role | Phone | + +------+ + | Thalia Georges MD | PCP | | + +------+ + Reason for Visit + + + | Reason | Comments | + + + | Medication requested | | + + + Encounter Details +--------+ + + + + | Date | Type | Department | Care Team | Description | +--------+ + + + + | 04/22/ | Telephone | [facility] | Thalia Georges | Medication requested | | 2017 | | Medical Clinic | MD Fabien [address] | | | | | Internal Medicine | [address] [place], | | | | | [address] | [place] [address] | | | | | [place], [place] | [phone] | | | | | [address] | | | | | | [phone] | | | +--------+ + + + [...] | | | | | | [place] [address] | | | | | | [phone] | | | | | | | | +--------+---------+ + + + | 09/30/ | Office | Hematology & | Vonda Wang, | | | 2017 | Visit | Oncology | [address] | | | | | | [place] | | | | | | [address] | | | | | | [phone] | | | | | | | | +--------+---------+ + + + as of this encounter Visit Diagnoses Not on filein this encounter"
--- OUTSIDE RECORDS SUMMARY | ~2018-05-25 | XMS | Encounter Summary ---
Demographics + + + | Address | [address] | | | [place] [address] | + + + | Home Phone | | + + + | Preferred Language | Unknown | + + + | Marital Status | Single | + + + | Mosque Affiliation | CHR | + + + [...] [place], | | | | | [place] [address] | | + + + + + Care Team Providers + +------+ + | Care Fuel Efficient Aircraft Designer Name | Role | Phone | + +------+ + | Thalia Georges MD | PCP | | + +------+ + Reason for Referral Diagnostic Testing (Routine) +--------+--------+ + + + + | Status | Reason | Specialty | Diagnoses / | Referred By | Referred To | | | | | Procedures | Contact | Contact | +--------+--------+ + + + + | Closed | | Radiology | Diagnoses | Vonda [place] | [address] | | | | | Malignant | MD Mendoza | Scan [address] | | | | | neoplasm of | [address] | | | | | ascending | St THE | [place], | | | | | colon (HCC) | [place], [place] | [place] [address] | | | | | Procedures | [address] | | | | | | CT CHEST W | Phone: | | | | | | CONTRAST | [phone] | | | | | | | Fax: | | | | | | | [phone] | | +--------+--------+ + + + + Diagnostic Testing (Routine) +--------+--------+ + + + + | Status | Reason | Specialty | Diagnoses / | Referred By | Referred To | | | | | Procedures | Contact | Contact | +--------+--------+ + + + + | Closed | | Radiology | Diagnoses | Vonda [place] | [address] | | | | | Malignant | MD Mendoza | [address] | | | | | neoplasm of | [address] | | | | | ascending | St THE | [place], | | | | | colon (HCC) | [place], [place] | [place] [address] | | | | | Procedures | [address] | | | | | | CT CHEST W | Phone: | | | | | | CONTRAST | [phone] | | | | | | | Fax: | | | | | | | [phone] | | +--------+--------+ + + + + Reason for Visit Diagnostic Testing (Routine) +--------+--------+ + + + + | Status | Reason | Specialty | Diagnoses / | Referred By | Referred To | | | | | Procedures | Contact | Contact | +--------+--------+ + + + + | Closed | | Radiology | Diagnoses | Vonad [place] | [address] | | | | | Malignant | MD Mendoza | Scan [address] | | | | | neoplasm of | [address] | | | | | ascending | St THE | [place], | | | | | colon (HCC) | [place] | [place] [address] | | | | | Procedures | [address] | | | | | | CT CHEST W | Phone: | | | | | | CONTRAST | [phone] | | | | | | | Fax: | | | | | | | [phone] | | +--------+--------+ + + + + Encounter Details +--------+ + + + + | Date | Type | Department | Care Team | Description | +--------+ + + + + | 03/12/ | Hospital | Diagnostic Imaging | Vonda [place], | | | 2017 | Encounter | at [facility] | MD [address] | | | | | [address] | THE [place], [place] | | | | | [place], [place] | [address] | | | | | [address] | [phone] | | | | | | | | +--------+ + [...] + + + as of this encounter Medications at Time of Discharge + +------+-------+---------+--------+ + | Medication | Sig. | Disp. | Refills | Start | End Date | | | | | | Date | | + +------+-------+---------+--------+ + | MEDICAL MARIJUANA | | | | | | + +------+-------+---------+--------+ + as of this encounter Plan of Treatment +--------+---------+ + + + | Date | Type | Specialty | Care Team | Description | +--------+---------+ + + + | 07/10/ | Office | Internal Medicine | Thalia Georges | | | 2017 | Visit | | MD [address]ro Conn | | | | | | [place], | | | | | | [place] [address] | | | | | | [phone] | | | | | | | | +--------+---------+ + + + | 09/30/ | Office | Hematology & | Vonda [place], | | | 2017 | Visit | Oncology | [address] | | | | | | [place] | | | | | | [address] | | | | | | [phone] | | | | | | | | +--------+---------+ + + + as of this encounter Results CT CHEST W CONTRAST (03/12/2018 11:26 AM) + + + | Specimen | Performing Laboratory | + + + | | [facility] | + + + + + | Narrative | + + | [address] | | [place] [address] | | [phone] Name: | | WYATT COLEY Phys: VONDA [place] : 1965 Sex: | | M CSN: [id number] MR# [id number] Exam Date: | | 03/12/2018 EXAM: CT [...] MD Transcribed Date/Time: 03/12/2018 21:39 | | Hogshead Head Matcher: CORAZON | + + + + | Procedure Note | + + | Interface, Radiology Results - 03/12/2018 9:43 PM PDT [address] | | [address] [place] [address] | | Name: WYATT COLEY Phys: VONDA [place]IN[place] : 1965 Sex: M CSN: | | [id number] MR# [id number] Exam Date: 03/12/2018 EXAM:CT CHEST WITH CONTRAST | | CLINICAL HISTORY:Follow-up colon cancer with lung metastases, status post resection | | [id number]. COMPARISON:Chest CT 01/25/2017. TECHNIQUE:Axial CT images were [...] OTHER VENDOR SYSTEM 03/12/2018 | |Reported by: SELVIN CUMMINGS MD | | | |Electronically signed by: SELVIN CUMMINGS MD | | | |Transcribed Date/Time: 03/12/2018 21:39 | |Hogshead Head Matcher: FLUENCY | | | | | | | + + in this encounter Visit Diagnoses + + | Diagnosis | + + | Malignant neoplasm of ascending colon (HCC) | + + | Malignant neoplasm of ascending colon | + + Administered Medications + +--------+ +-------+------+------+ | Medication Order | MAR | Action | Dose | Rate | Site | | | Action | Date | | | | + +--------+ +-------+------+------+ | iohexol (OMNIPAQUE) 300 mg | Given | | 75 mL | | | | iodine/mL 75 mL 75 mL, | | 8 11:36 | | | | | intravenous, RADIOLOGY ONCE, 1 | | PDT | | | | | dose, First dose on Sat03/12/18 | | | | | | | at 1145 | | | | | | + +--------+ +-------+------+------+ + +---+ | | | + +---+ | iohexol (OMNIPAQUE) 300 mg | | | iodine/mL 1 dose, Starting Wed | | | 03/12/18 at 1120, Until Wed | | | 03/12/18 at 1136 | | + +---+ | | | + +---+ | NaCl 0.9 % solution 1 dose, | | | Starting 03/12/18 at 1120, | | | Until 03/12/18 at 1136 | | + +---+ | | | + +---+ + +---------+ +-------+---+---+ | sodium chloride 0.9% IV | IV Push | | 45 mL | | | | infusion 50 mL, intravenous, | | 8 11:36 | | | | | RADIOLOGY ONCE, 1 dose, First | | PDT | | | | | dose on Sat03/12/18 at 1145 | | | | | | + +---------+ +-------+---+---+ +---+---+ | | | +---+---+ in this encounter"
--- OUTSIDE RECORDS SUMMARY | ~2018-05-25 | XMS | Encounter Summary ---
Demographics + + + | Address | [address] | | | [place] [address] | + + + | Home Phone | | + + + | Preferred Language | Unknown | + + + | Marital Status | Single | + + + | Mandaen Affiliation | CHR | + + + | Race | White | + + + | Ethnic Group | Not or | + + + Author + + + | Author | [facility] | + + + | Organization | [facility] | + + + | [...] [place], | | | | | [place] [address] | | + + + + + Care Team Providers + +------+ + | Care Chicken Hatchery Helper Name | Role | Phone | + +------+ + | Thalia Georges MD | PCP | | + +------+ + Encounter Details +--------+ + + + + | Date | Type | Department | Care Team | Description | +--------+ + + + + | 04/22/ | Document-Sc | [facility] | Thalia Georges | | | 2018 | [place] | [facility] | MD [address] | | | | | Internal Medicine | [place], | | | | | [address] | [place] [address] | | | | | [place] | [phone] | | | | | [address] | | | | | | [phone] | | | +--------+ + + + [...] | | | | | | [place] [address] | | | | | | [phone] | | | | | | | | +--------+---------+ + + + | 09/30/ | Office | Hematology & | Vonda Wang, | | | 2017 | Visit | Oncology | [address] | | | | | | [place] | | | | | | [address] | | | | | | [phone] | | | | | | | | +--------+---------+ + + + as of this encounter Visit Diagnoses Not on filein this encounter"
--- OUTSIDE RECORDS SUMMARY | ~2018-05-25 | XMS | Encounter Summary ---
Demographics + + + | Address | [address] | | | [place] [address] | + + + | Home Phone | | + + + | Preferred Language | Unknown | + + + | Marital Status | Single | + + + | Pentecostalism Affiliation | CHR | + + + | Race | White | + + + | Ethnic Group | Not or | + + + Author + + + | Author | [facility] | + + + | Organization | [facility] | + + + | [...] [place], | | | | | [place] [address] | | + + + + + Care Team Providers + +------+ + | Care Fisher Pot Name | Role | Phone | + [...] [place] | | | | | | [address] | | | | | | [phone] | | | +--------+------+ + + + [...] | | | | | | [place] [address] | | | | | | [phone] | | | | | | | | +--------+---------+ + + + | 09/30/ | Office | Hematology & | Vonda Wang, | | | 2017 | Visit | Oncology | [address] | | | | | | [place] | | | | | | [address] | | | | | | [phone] | | | | | | | | +--------+---------+ + + + as of this encounter Visit Diagnoses Not on filein this encounter"
--- OUTSIDE RECORDS SUMMARY | ~2018-05-25 | XMS | Encounter Summary ---
Demographics + + + | Address | [address] | | | [place] [address] | + + + | Home Phone | | + + + | Preferred Language | Unknown | + + + | Marital Status | Single | + + + | Mormon Affiliation | CHR | + + + | Race | White | + + + | Ethnic Group | Not or | + + + Author + + + | Author | [facility] | + + + | Organization | [facility] | + + + | Address | Unknown | + + + | Phone | Unavailable | + + + Support + + + + + | Name | Relationship | Address | Phone | + + + + + | WAYNE COLEY | ECON | [address] | | | [place] | | [place], | | | | | [place] [address] | | + + + + + Care Team Providers + +------+ + | Care Gate Guard Name | Role | Phone | + +------+ + | Thalia Georges MD | PCP | | + +------+ + Reason for Visit + + + | Reason | Comments | + + + | Mental health | | | disorder | | + + + Encounter Details +--------+ + + + + | Date | Type | Department | Care Team | Description | +--------+ + + + + | 03/05/ | Telephone | [facility] | Thalia Georges | Mental health | | 2018 | | Medical Clinic | MD [address] | disorder | | | | Internal Medicine | [address] [place], | | | | | [address] | [place] [address] | | | | | [place], [place] | [phone] | | | | | [address] | | | | | | [phone] | | | +--------+ + + + [...] | | | | | | [place] [address] | | | | | | [phone] | | | | | | | | +--------+---------+ + + + | 09/30/ | Office | Hematology & | Vonda Wang | | | 2017 | Visit | Oncology | [address] | | | | | | [place] | | | | | | [address] | | | | | | [phone] | | | | | | | | +--------+---------+ + + + as of this encounter Visit Diagnoses Not on filein this encounter"
--- OUTSIDE RECORDS SUMMARY | ~2018-05-25 | XMS | Encounter Summary ---
Demographics + + + | Address | [address] | | | [place] [address] | + + + | Home Phone | | + + + | Preferred Language | Unknown | + + + | Marital Status | Single | + + + | Worship Affiliation | CHR | + + + [...] [place], | | | | | [place] [address] | | + + + + + Care Team Providers + +------+ + | Care Ceiling Insulation Blower Name | Role | Phone | + +------+ + | Thalia Georges MD | PCP | | + +------+ + Encounter Details +--------+ + + + + | Date | Type | Department | Care Team | Description | +--------+ + + + + | 09/16/ | Procedure | Diagnostic Imaging | | | | 2016 | Pass | at [facility] | | | | | | [address] [place] [address] | | | | | | [place] | | | | | | [address] | | | +--------+ + + + [...] | | | | | | [place] [address] | | | | | | [phone] | | | | | | | | +--------+---------+ + + + | 09/30/ | Office | Hematology & | Vonda Wang, | | | 2017 | Visit | Oncology | [address] | | | | | | [place] | | | | | | [address] | | | | | | [phone] | | | | | | | | +--------+---------+ + + + as of this encounter Visit Diagnoses Not on filein this encounter"
--- OUTSIDE RECORDS SUMMARY | ~2018-05-25 | XMS | Encounter Summary ---
Demographics + + + | Address | [address] | | | [place] [address] | + + + | Home Phone | | + + + | Preferred Language | Unknown | + + + | Marital Status | Single | + + + | Congregation Affiliation | CHR | + + + | Race | White | + + + | Ethnic Group | Not or | + + + Author + + + | Author | [facility] | + + + | Organization | [facility] | + + + [...] [place], | | | | | [place] [address] | | + + + + + Care Team Providers + +------+ + | Care Wildfire Prevention Specialist Name | Role | Phone | + [...] | [address] | [place] [address] | | | | | [place], [place] | [phone] | | | | | [address] | | | | | | [phone] | | | +--------+ + + + [...] | | | | | | [place] [address] | | | | | | [phone] | | | | | | | | +--------+---------+ + + + | 09/30/ | Office | Hematology & | Vonda Wang, | | | 2017 | Visit | Oncology | [address] | | | | | | [place] | | | | | | [address] | | | | | | [phone] | | | | | | | | +--------+---------+ + + + as of this encounter Visit Diagnoses Not on filein this encounter"
--- OUTSIDE RECORDS SUMMARY | ~2018-05-25 | XMS | Encounter Summary ---
Demographics + + + | Address | [address] | | | [place] [address] | + + + | Home Phone | | + + + | Preferred Language | Unknown | + + + | Marital Status | Single | + + + | Bahai Affiliation | CHR | + + + | Race | White | + + + | Ethnic Group | Not or | + + + Author + + + | Author | [facility] | + + + | Organization | [facility] | + + + | Address [...] [place], | | | | | [place] [address] | | + + + + + Care Team Providers + +------+ + | Care Harbour Master Name | Role | Phone | + [...] | | | | Street [address] | [address] | | | | | [place] | [phone] | | | | | [address] | | | | | | [phone] | | | +--------+ + + + [...] | | | | | | [place] [address] | | | | | | [phone] | | | | | | | | +--------+---------+ + + + | 09/30/ | Office | Hematology & | Vonda Wang, | | | 2017 | Visit | Oncology | [address] | | | | | | [place] | | | | | | [address] | | | | | | [phone] | | | | | | | | +--------+---------+ + + + as of this encounter Visit Diagnoses Not on filein this encounter"
--- OUTSIDE RECORDS SUMMARY | ~2018-05-25 | XMS | Encounter Summary ---
Demographics + + + | Address | [address] | | | [place] [address] | + + + | Home Phone | | + + + | Preferred Language | Unknown | + + + | Marital Status | Single | + + + | Orthodox Affiliation | CHR | + + + | Race | White | + + + | Ethnic Group | Not or | + + + Author + + + | Author | [facility] | + + + | Organization | [facility] | + + + [...] [place], | | | | | [place] [address] | | + + + + + Care Team Providers + +------+ + | Care Cadastral Engineer Name | Role | Phone | [...] | [address] | [place] [address] | | | | | [place], [place] | [phone] | | | | | [address] | | | | | | [phone] | | | +--------+ + + + [...] | | | | | | [place] [address] | | | | | | [phone] | | | | | | | | +--------+---------+ + + + | 09/30/ | Office | Hematology & | Vonda Wang | | | 2017 | Visit | Oncology | [address] | | | | | | [place] | | | | | | [address] | | | | | | [phone] | | | | | | | | +--------+---------+ + + + as of this encounter Visit Diagnoses Not on filein this encounter"
--- OUTSIDE RECORDS SUMMARY | ~2018-05-25 | XMS | Encounter Summary ---
Demographics + + + | Address | [address] | | | [place] [address] | + + + | Home Phone | | + + + | Preferred Language | Unknown | + + + | Marital Status | Single | + + + | Anglican Affiliation | CHR | + + + [...] [place], | | | | | [place] [address] | | + + + + + Care Team Providers + +------+ + | Care Group Counselor Name | Role | Phone | + +------+ + | Thalia Georges MD | PCP | | + +------+ + Reason for Visit + + + | Reason | Comments | + + + | Follow-up visit | | + + + Encounter Details +--------+ + + + + | Date | Type | Department | Care Team | Description | +--------+ + + + + | 03/28/ | Clinical | [facility] | | Follow-up visit | | 2018 | Support | Center [address] | | | | | Staff | Street [place], | | | | | | [place] [address] | | | | | | [phone] | | | +--------+ + + + [...] + + + as of this encounter Progress Notes Jeanie Ruffin MA - 03/28/2018 5:10 AM PDTFormatting of this note may be different from the original. Patient presented in clinic today for Chief Complaint Patient presents with Follow-up visit BP 169/99 | Pulse 100 | Temp (Src) 36.8 C (98.2 F) (Tympanic) | Ht 1.727 m (5' 7.99") | Wt 142.4 kg (313 lb 14.4 oz) | SpO2 96% | BMI 47.74 kg/(m^2) Allergies Allergen Reactions Penicillins Hives Medications history reviewed. A spanish interpreter was offered to the patient and they declined. Jeanie Ruffni MA in this encounter Plan of Treatment +--------+---------+ + + + | Date | Type | Specialty | Care Team | Description | +--------+---------+ + + + | 07/10/ | Office | Internal Medicine | Thalia Georges | | | 2017 | Visit | MD [address] | | | | | | [place], | | | | | | [place] [address] | | | | | | [phone] | | | | | | | | +--------+---------+ + + + | 09/30/ | Office | Hematology & | Vonda Wang, | | | 2017 | Visit | Oncology | [address] | | | | | | [place] | | | | | | [address] | | | | | | [phone] | | | | | | | | +--------+---------+ + + + as of this encounter Visit Diagnoses + + | Diagnosis | + + | Personal history of colon cancer, stage IV - Primary | + + | Personal history of malignant neoplasm of large intestine | + +
--- OUTSIDE RECORDS SUMMARY | ~2018-05-25 | XMS | Encounter Summary ---
Demographics + + + | Address | [address] | | | [place] [address] | + + + | Home Phone [...] [place], | | | | | [place] [address] | | + + + + + Care Team Providers + +------+ + | Care Field Care Coordinator Name | Role | Phone | + +------+ + | Thalia Georges MD | PCP | | + +------+ + Reason for Referral Consultation (Routine) +--------+--------+ + + + + | Status | Reason | Specialty | Diagnoses / | Referred By | Referred To | | | | | Procedures | Contact | Contact | +--------+--------+ + + + + | Closed | | Endocrinology | Diagnoses | José Manuel | McMc | | | | , Diabetes & | Type 2 | Thalia Conn MD | Diabetes Educ | | | | Metabolism | diabetes | [address] | | | | | mellitus | [address] | [address] | | | | | without | [place], | [place], | | | | | complication | [place] | [place] [address] | | | | | , without | [address] | Phone: | | | | | long-term | Phone: | [phone] | | | | | current use | [phone] | Fax: | | | | | of insulin | Fax: | [phone] | | | | | ([facility]) | [phone] | | | | | | Procedures | | | | | | | CONSULT TO | | | | | | | DIABETES | | | +--------+--------+ + + + + Reason for Visit + + + | Reason | Comments | + + + | Follow-up visit | CC. Medications refill, insomnia & Abd pain | + + + Encounter Details +--------+---------+ + + + | Date | Type | Department | Care Team | Description | +--------+---------+ + + + | 04/08/ | Office | [facility] | Thalia Georges | Alcohol dependence, | | 2018 | Visit | Medical Clinic | MD [address] | episodic drinking | | | | Internal Medicine | [address] [place], | behavior ([facility]) | | | | [address] | [place] [address] | (Primary Dx); Type 2 | | | | [place], [place] | [phone] | diabetes mellitus | | | | [address] | | ([facility]); Skin ulcer of | | | | [phone] | | upper arm with fat | | | | | | layer exposed ([facility]); | | | | | | Need for | | | | | | clbnowxvub-dgfcies-d | | | | | | ertussis (Tdap) | | | | | | vaccine | +--------+---------+ + + + Social History [...] + + + + | Temperature | - | - | + + + + | Respiratory [...] PM PDT | + + + + in this encounter Instructions Patient Instructions - Thalia Georges MD - 04/08/2018 3:00 PM PDT1) You can get your labs drawn at the hospital. 2) Do take the glimepiride, even if you are out of Januvia. 3) The Januvia and Proair were sent in to [facility]. 4) A referral to diabetes [facility] has been submitted. This will be reviewed [facility] and forwarded to the appropriate office, and you should be contacted for an appointment shortly. If you have not heard back about the appointment by 04/22/2018, collin payne call our office to follow-up. 5) The tetanus-pertussis (Boostrix) vaccine is recommended for all adults at least once to protect you from tetanus and whooping cough - we have given you that vaccination today. 6) It is recommended that all adults over age 50 be vaccinated against shingles with a new shingles vaccine series called Shingrix, with is more than 90% protective. This applies anita n to people who previously had a case of shingles or had the earlier Zostavax immunization. This is a costly vaccine, and insurance may cover some or all of the cost, depending on you r plan. I recommend contacting your prescription Part D insurance to check your coverage an d find out where you should get the vaccine, usually at a pharmacy. in this encounter Progress Notes Thalia Georges MD - 04/08/2018 3:00 PM PDTSubjective The patient is here for routine follow-up of his chronic conditions. He tells me that he i s doing better overall. For the last couple of weeks he has really cut back on his drinking , using "mind over matter". He is only having one beer a day at most. He is also abstainin g from meth. He still uses marijuana. He has contacted [facility], and has some paperwork to fi out for them. His swelling has gotten much better, and his blood pressure has been doing well. He hasn't been taking his Januvia, as he hasn't been able to pick it up. He is eladio g to after he gets paid. He is reporting some sharp abdominal pain on and off for the last year, usually associated with movement. It is not affected by eating or bowel movements. He denies fever or chills, though he has been tired a lot lately. He mentioned this to Sherrie Cook at [facility] the , and a CT scan has been ordered. His skin overall is doing well, but he does have an open wound on the back of his right arm he would like me to check. He thinks it was a pimple he scratched. History Pertinent past medical, surgical, family and social history reviewed and updated if appropr iate. Physical Exam Wt 143.8 kg (317 lb), BP 122/58, Pulse 83, SpO2 98%, BMI 48.21 kg/(m^2). General: This is an alert, pleasant, well-groomed obese older man who is oriented and in n o acute distress. Skin: There is a 1cm excoriated ulcer on the posterior right upper arm, no erythema or drai nage. Assessment/Plan 1. Alcohol dependence, episodic drinking behavior (HCC) Currently in partial remission, doing better at self care, with some contacts for [facility]. - Continue to support abstinence and treatment. 2. Type 2 diabetes mellitus (HCC) Historically poor control due to multiple barriers including finances, substance use, and d iet. He is requesting a consult today with DM education. - HEMOGLOBIN A1C, BLOOD; Future - BASIC METABOLIC SET (NA, K, CL, TCO2, BUN, CR, GLU, CA); Future - CBC W/DIFF, REFLEX; Future - CONSULT TO DIABETES 3. Skin ulcer of upper arm with fat layer exposed (HCC) Minor ulcer, likely self-inflicted, but as he is due for tetanus this should be boosted. - STAFF TO GIVE: TDAP (BOOSTRIX) 4. Need for gpgywgrzln-tqfrvtb-oefsjffnw (Tdap) vaccine - STAFF TO GIVE: TDAP (BOOSTRIX) Return in about 3 months (around 07/09/2018). Anamaria Schneider MA - 04/08/2018 3:00 PM PDTFormatting of this note may be different from t jayleen original. Chief Complaint Patient presents with Follow-up visit CC. Medications refill, insomnia & Abd pain Carbon Coater Machine Operator Offered to Patient: N/A Health Maintenance Due Topic DIABETIC EYE EXAM DIPHTHERIA,TETANUS,and PERTUSSIS (DTaP/Tdap/Td) (1 - Tdap) MONOFILAMENT FOOT EXAM 1. Is the patient sick today? no 2. Do you have allergies to medications, food, a vaccine component or latex? no 3. Has the patient ever had a serious reaction to any vaccine in the past? no 4. Do you have [facility] health problem with heart disease, lung disease, asthma, kidney di sease, metabolic disease (e.g., diabetes), anemia, or other blood disorder? yes 5. Do you have cancer, leukemia, HIV/AIDS, or any other immune system problem? no 6. In the past 3 months, have you taken medications that weaken your immune system, such as cortisone, prednisone, other steroids, or anticancer drugs, or have you had radiation treat ments? no 7. Have you had a seizure or a brain or other nervous system problem? no 8. During the past year, have you received a transfusion of blood or blood products or been given immune (gamma) blobulin or an antiviral drug? no 9. For women: Are you or is there a chance you could become ? no 10. Have you received any vaccinations in the past 4 weeks? no Health Maintenance (Actions taken) N/A SBIRT/CRAFFT, Depression Screen Not given today. Anamaria Monroy CMA in this encounter Plan of Treatment +--------+---------+ + + + | Date | Type | Specialty | Care Team | Description | +--------+---------+ + + + | 07/10/ | Office | Internal Medicine | Thalia Georges | | | 2017 | Visit | | MD Pietro Conn | | | | | | [place], | | | | | | [place] [address] | | | | | | [phone] | | | | | | | | +--------+---------+ + + + | 09/30/ | Office | Hematology & | Vonda Wang, | | | 2017 | Visit | Oncology | [address] | | | | | | [place] | | | | | | [address] | | | | | | [phone] | | | | | | | | +--------+---------+ + + + + +--------+ + + | Name | Priori | Associated Diagnoses | Order Schedule | | | ty | | | + +--------+ + + | HEMOGLOBIN A1C, BLOOD | Routin | Type 2 diabetes | Expected: 04/08/2018 | | | e | mellitus (HCC) | (Approximate), | | | | | Expires: 05/09/2019 | + +--------+ + + | BASIC METABOLIC SET (NA, K, CL, | Routin | Type 2 diabetes | Expected: 04/08/2018 | | TCO2, BUN, CR, GLU, CA) | e | mellitus (HCC) | (Approximate), | | | | | Expires: 05/09/2019 | + +--------+ + + | CBC W/DIFF, REFLEX | Routin | Type 2 diabetes | Expected: 04/08/2018 | | | e | mellitus (HCC) | (Approximate), | | | | | Expires: 05/09/2019 | + +--------+ + + as of this encounter Visit Diagnoses + + | Diagnosis | + + | Alcohol dependence, episodic drinking behavior (HCC) - Primary | + + | Other and unspecified alcohol dependence, episodic drinking behavior | + + | Type 2 diabetes mellitus (HCC) | + + | Skin ulcer of upper arm with fat layer exposed (HCC) | + + | Need for lpomfgoftx-vaqnagp-qywoqcarf (Tdap) vaccine | + + | Need for prophylactic vaccination with combined dpnrhbamkk-dwkvova-xcdycmlue (DTP) | | vaccine | + +
--- OUTSIDE RECORDS SUMMARY | ~2018-05-25 | XMS | Encounter Summary ---
Demographics + + + | Address | [address] | | | [place] [address] | + + + | Home Phone [...] + + + | Author | [facility] | + + + | Organization | [facility] | + + + | Address | Unknown | + + + | Phone | Unavailable | + + + Support + + + + + | Name | Relationship | Address | Phone | + + + + + | WAYNE COLEY | ECON | [address] | | | [place] | | [place], | | | | | [place] [address] | | + + + + + Care Team Providers + +------+ + | Care Mft Name | Role | Phone | + [...] | | | | [place] | [address] | | | | | [address] | [phone] | | | | | [phone] | | | +--------+ + + + [...] | | | | | | [place] [address] | | | | | | [phone] | | | | | | | | +--------+---------+ + + + | 09/30/ | Office | Hematology & | Vonda Wang, | | | 2017 | Visit | Oncology | [address] | | | | | | [place] | | | | | | [address] | | | | | | [phone] | | | | | | | | +--------+---------+ + + + as of this encounter Visit Diagnoses Not on filein this encounter"
--- OUTSIDE RECORDS SUMMARY | ~2018-05-25 | XMS | Encounter Summary ---
Demographics + + + | Address | [address] | | | [place] [address] | + + + | Home Phone [...] + + + | Author | [facility] | + + + | Organization | [facility] | + + + [...] [place], | | | | | [place] [address] | | + + + + + Care Team Providers + +------+ + | Care Cloth Finishing Range Operator Chief Name | Role | Phone | + [...] | | | | | mellitus | [address] | [address] | | | | | without | [place], | [place], | | | | | complication | [place] | [place] [address] | | | | | , without | [address] | Phone: | | | | | long-term | Phone: | [phone] | | | | | current use | [phone] | Fax: | | | | | of insulin | Fax: | [phone] | | | | | ([facility]) | [phone] | | | | | | Procedures [...] + + | 04/08/ | Office | [facility] | Thalia Georges | Alcohol dependence, | | 2018 | Visit | Medical Clinic | MD [address] | episodic drinking | | | | Internal Medicine | [address] [place], | behavior ([facility]) | | | | [address] | [place] [address] | (Primary Dx); Type 2 | | | | [place], [place] | [phone] | diabetes mellitus | | | | [address] | | ([facility]); Skin ulcer of | | | | [phone] | | upper arm with fat | | | | | | layer exposed ([facility]); | | | | | | Need for | | | | | | ktslqtaczf-eploree-k | | | | | | ertussis [...] [facility]. 4) A referral to diabetes [facility] has been submitted. This will be reviewed by [facility] and forwarded to the appropriate [...] He still uses marijuana. He has contacted [facility], and has some paperwork to fi out [...] He mentioned this to Sherrie Cook at [facility] the , and a CT scan [...] at self care, with some contacts for [facility]. - Continue to support abstinence and treatment. [...] TO GIVE: TDAP (BOOSTRIX) 4. Need for mgnizbdfls-uzdbzvr-bafhwzmnb (Tdap) vaccine - STAFF TO GIVE: TDAP (BOOSTRIX) Return in about 3 months (around 07/09/2018). Anamaria Schneider MA - 04/08/2018 3:00 PM PDTFormatting of this note may be different from t jayleen original. Chief Complaint Patient presents with Follow-up visit CC. Medications refill, insomnia & Abd pain Base Remover Offered to Patient: N/A Health Maintenance Due Topic DIABETIC EYE EXAM DIPHTHERIA,TETANUS,and PERTUSSIS (DTaP/Tdap/Td) (1 - Tdap) MONOFILAMENT FOOT EXAM 1. Is the patient sick today? no 2. Do you have allergies to medications, food, a vaccine component or latex? no 3. Has the patient ever had a serious reaction to any vaccine in the past? no 4. Do you have [facility]ent[facility] health problem with heart disease, lung disease, [...] | | | | | | [place] [address] | | | | | | [phone] | | | | | | | | +--------+---------+ + + + | 09/30/ | Office | Hematology & | Vonda Wang, | | | 2017 | Visit | Oncology | [address] | | | | | | [place] | | | | | | [address] | | | | | | [phone] | | | | | | | [...] (HCC) | + + | Need for dtyqgggufi-gtowaen-prtzetyeu (Tdap) vaccine | + + | Need for prophylactic vaccination with combined mxpworqhqr-ettakiq-uzjlsjszs (DTP) | | vaccine | + +
--- OUTSIDE RECORDS SUMMARY | ~2018-05-25 | XMS | Encounter Summary ---
Demographics + + + | Address | [address] | | | [place] [address] | + + + | Home Phone [...] Author + + + | Author | [facility] | + + + | Organization | [facility] | + + + | Address [...] [place], | | | | | [place] [address] | | + + + + + Care Team Providers + +------+ + | Care Fork Repairer Name | Role | Phone | + [...] for CT) | | | | [place] [address] | | | | | | [phone] | | | +--------+ + + + [...] | | | | | | [place] [address] | | | | | | [phone] | | | | | | | | +--------+---------+ + + + | 09/30/ | Office | Hematology & | Vonda Wang, | | | 2017 | Visit | Oncology | [address] | | | | | | [place] | | | | | | [address] | | | | | | [phone] | | | | | | | [...]
--- OUTSIDE RECORDS SUMMARY | ~2018-05-25 | XMS | Encounter Summary ---
Demographics + + + | Address | [address] | | | [place] [address] | + + + | Home Phone | | + + + | Preferred Language | Unknown | + + + | Marital Status | Single | + + + | Anabaptist Affiliation | CHR | + + + [...] [place], | | | | | [place] [address] | | + + + + + Care Team Providers + +------+ + | Care Plastic Extrusion Operator Name | Role | Phone | [...] | | | | Street [address] | [address] | | | | | [place], [place] | [phone] | | | | | [address] | | | | | | [phone] | | | +--------+ + + + [...] | | | | | | [place] [address] | | | | | | [phone] | | | | | | | | +--------+---------+ + + + | 09/30/ | Office | Hematology & | Vonda Wang, | | | 2017 | Visit | Oncology | [address] | | | | | | [place] | | | | | | [address] | | | | | | [phone] | | | | | | | | +--------+---------+ + + + as of this encounter Visit Diagnoses Not on filein this encounter"
--- OUTSIDE RECORDS SUMMARY | ~2018-05-25 | XMS | Encounter Summary ---
Demographics + + + | Address | [address] | | | [place] [address] | + + + | Home Phone [...] + + + | Author | [facility] | + + + | Organization | [facility] | + + + | [...] [place], | | | | | [place] [address] | | + + + + + Care Team Providers + +------+ + | Care Dress Cutter Name | Role | Phone | + [...] [place] | | | | | [place] [address] | [address] | | | | | [phone] | | | +--------+ + + + [...] | | | | | | [place] [address] | | | | | | [phone] | | | | | | | | +--------+---------+ + + + | 09/30/ | Office | Hematology & | Vonda Wang, | | | 2017 | Visit | Oncology | [address] | | | | | | [place] | | | | | | [address] | | | | | | [phone] | | | | | | | | +--------+---------+ + + + as of this encounter Visit Diagnoses Not on filein this encounter"
--- OUTSIDE RECORDS SUMMARY | ~2018-05-25 | XMS | Encounter Summary ---
Demographics + + + | Address | [address] | | | [place] [address] | + + + | Home Phone | | + + + | Preferred Language | Unknown | + + + | Marital Status | Single | + + + | Jainism Affiliation | CHR | + + + [...] WAYNE COLEY | ECON | [address] | | | [place] | | [place], | | | | | [place] [address] | | + + + + + Care Team Providers + +------+ + | Care Project Management Specialist Name | Role | Phone | [...] | | | | | | [place] [address] | | | | | | [phone] | | | +--------+ + + + [...] Reactions Penicillins Hives Medications history reviewed. A chief of service was offered to the patient and they [...] | | | | | | [place] [address] | | | | | | [phone] | | | | | | | | +--------+---------+ + + + | 09/30/ | Office | Hematology & | Vonda Wang, | | | 2017 | Visit | Oncology | [address] | | | | | | [place] | | | | | | [address] | | | | | | [phone] | | | | | | | | +--------+---------+ + + + as of this encounter Visit Diagnoses + + | Diagnosis | + + | Personal history of colon cancer, stage IV - Primary | + + | Personal history of malignant neoplasm of large intestine | + +
--- OUTSIDE RECORDS SUMMARY | ~2018-05-25 | XMS | Encounter Summary ---
Demographics + + + | Address | [address] | | | [place] [address] | + + + | Home Phone | | + + + | Preferred Language | Unknown | + + + | Marital Status | Single | + + + | Taoism Affiliation | CHR | + + + | Race | White | + + + | Ethnic Group | Not or | + + + Author + + + | Author | [facility] | + + + | Organization | [facility] | + + + [...] [place], | | | | | [place] [address] | | + + + + + Care Team Providers + +------+ + | Care Campus Recruiter Name | Role | Phone | + [...] | | | | [place] | [address] | | | | | [address] | [phone] | | | | | [phone] | | | +--------+ + + + [...] | | | | | | [place] [address] | | | | | | [phone] | | | | | | | | +--------+---------+ + + + | 09/30/ | Office | Hematology & | Vonda Wang, | | | 2017 | Visit | Oncology | [address] | | | | | | [place] | | | | | | [address] | | | | | | [phone] | | | | | | | | +--------+---------+ + + + as of this encounter Visit Diagnoses Not on filein this encounter"
--- OUTSIDE RECORDS SUMMARY | ~2018-05-25 | XMS | Encounter Summary ---
Demographics + + + | Address | [address] | | | [place] [address] | + + + | Home Phone | | + + + | Preferred Language | Unknown | + + + | Marital Status | Single | + + + | Rastafarian Affiliation | CHR | + + + | Race | White | + + + | Ethnic Group | Not or | + + + Author + + + | Author | [facility] | + + + | Organization | [facility] | + + + [...] [place], | | | | | [place] [address] | | + + + + + Care Team Providers + +------+ + | Care Audit Intern Name | Role | Phone | + [...] | [address] | [place] [address] | | | | | [place], [place] | [phone] | | | | | [address] | | | | | | [phone] | | | +--------+--------+ + + + [...] | | | | | | [place] [address] | | | | | | [phone] | | | | | | | | +--------+---------+ + + + | 09/30/ | Office | Hematology & | Vonda Wang, | | | 2017 | Visit | Oncology | [address] | | | | | | [place] | | | | | | [address] | | | | | | [phone] | | | | | | | | +--------+---------+ + + + as of this encounter Visit Diagnoses Not on filein this encounter"
--- OUTSIDE RECORDS SUMMARY | ~2018-05-25 | XMS | Encounter Summary ---
Demographics + + + | Address | [address] | | | [place] [address] | + + + | Home Phone [...] Author + + + | Author | [facility] | + + + | Organization | [facility] | + [...] [place], | | | | | [place] [address] | | + + + + + Care Team Providers + +------+ + | Care Field Hauler Name | Role | Phone | + [...] | [address] | [place] [address] | | | | | [place], [place] | [phone] | | | | | [address] | | | | | | [phone] | | | +--------+--------+ + + + [...] | | | | | | [place] [address] | | | | | | [phone] | | | | | | | | +--------+---------+ + + + | 09/30/ | Office | Hematology & | Vonda Wang, | | | 2017 | Visit | Oncology | [address] | | | | | | [place] | | | | | | [address] | | | | | | [phone] | | | | | | | | +--------+---------+ + + + as of this encounter Visit Diagnoses Not on filein this encounter"
--- OUTSIDE RECORDS SUMMARY | ~2018-05-25 | XMS | Encounter Summary ---
Demographics + + + | Address | [address] | | | [place] [address] | + + + | Home Phone | | + + + | Preferred Language | Unknown | + + + | Marital Status | Single | + + + | Baptism Affiliation | CHR | + + + | Race | White | + + + | Ethnic Group | Not or | + + + Author + + + | Author | [facility] | + + + | Organization | [facility] | + + + [...] [place], | | | | | [place] [address] | | + + + + + Care Team Providers + +------+ + | Care Refractory Worker Name | Role | Phone | + [...] | [address] | [place] [address] | | | | | [place], [place] | [phone] | | | | | [address] | | | | | | [phone] | | | +--------+--------+ + + + [...] | | | | | | [place] [address] | | | | | | [phone] | | | | | | | | +--------+---------+ + + + | 09/30/ | Office | Hematology & | Vonda Wang, | | | 2017 | Visit | Oncology | [address] | | | | | | [place] | | | | | | [address] | | | | | | [phone] | | | | | | | | +--------+---------+ + + + as of this encounter Visit Diagnoses Not on filein this encounter"
--- OUTSIDE RECORDS SUMMARY | ~2018-05-25 | XMS | Encounter Summary ---
Demographics + + + | Address | [address] | | | [place] [address] | + + + | Home Phone | | + + + | Preferred Language | Unknown | + + + | Marital Status | Single | + + + | Restoration Affiliation | CHR | + + + [...] [place], | | | | | [place] [address] | | + + + + + Care Team Providers + +------+ + | Care Flight Test Mechanic Name | Role | Phone | + +------+ + | Thalia Georges MD | PCP | | + +------+ + Reason for Visit + + + | Reason | Comments | + + + | Care Management | orders for [facility] care facility in [place] | + + + Encounter Details +--------+ [...] | | [address] | [place] [address] | [place] ) | | | | [place], [place] | [phone] | | | | | [address] | | | | | | [phone] | | | +--------+ + + + [...] | | | | | | [place] [address] | | | | | | [phone] | | | | | | | | +--------+---------+ + + + | 09/30/ | Office | Hematology & | Vonda Wang, | | | 2017 | Visit | Oncology | [address] | | | | | | [place] | | | | | | [address] | | | | | | [phone] | | | | | | | | +--------+---------+ + + + as of this encounter Visit Diagnoses + + | Diagnosis | + + | Type 2 diabetes mellitus (HCC) - Primary | + +"
--- OUTSIDE RECORDS SUMMARY | ~2018-05-25 | XMS | Encounter Summary ---
Demographics + + + | Address | [address] | | | [place] [address] | + + + | Home Phone | | + + + | Preferred Language | Unknown | + + + | Marital Status | Single | + + + | Lutheran Affiliation | CHR | + + + [...] [place], | | | | | [place] [address] | | + + + + + Care Team Providers + +------+ + | Care Candy Cutter Machine Name | Role | Phone | + [...] [place] | | | | | | [address] | | | | | | [phone] | | | +--------+------+ + + + [...] | | | | | | [place] [address] | | | | | | [phone] | | | | | | | | +--------+---------+ + + + | 09/30/ | Office | Hematology & | Vonda Wang, | | | 2017 | Visit | Oncology | [address] | | | | | | [place] | | | | | | [address] | | | | | | [phone] | | | | | | | | +--------+---------+ + + + as of this encounter Visit Diagnoses Not on filein this encounter"
--- OUTSIDE RECORDS SUMMARY | ~2018-05-25 | XMS | Encounter Summary ---
Demographics + + + | Address | [address] | | | [place] [address] | + + + | Home Phone [...] [place], | | | | | [place] [address] | | + + + + + Care Team Providers + +------+ + | Care Leader Writer Name | Role | Phone | + +------+ + | Thalia Georges MD | PCP | | + +------+ + Encounter Details +--------+ + + + + | Date | Type | Department | Care Team | Description | +--------+ + + + + | 04/22/ | Document-Sc | [facility] | Thalia Georges | | | 2018 | [place] | Medical [facility] | MD Pietro Conn | | | | | Internal Medicine | [place], | | | | | [address] | [place] [address] | | | | | [place] | [phone] | | | | | [address] | | | | | | [phone] | | | +--------+ + + + [...] | | | | | | [place] [address] | | | | | | [phone] | | | | | | | | +--------+---------+ + + + | 09/30/ | Office | Hematology & | Vonda Wang, | | | 2017 | Visit | Oncology | [address] | | | | | | [place] | | | | | | [address] | | | | | | [phone] | | | | | | | | +--------+---------+ + + + as of this encounter Visit Diagnoses Not on filein this encounter"
--- OUTSIDE RECORDS SUMMARY | ~2018-05-25 | XMS | Encounter Summary ---
Demographics + + + | Address | [address] | | | [place] [address] | + + + | Home Phone [...] [place], | | | | | [place] [address] | | + + + + + Care Team Providers + +------+ + | Care Profiling Machine Set Up Operator Tool Name | Role | Phone | + +------+ + | Thalia Georges MD | PCP | | + +------+ + Reason for Visit + + + | Reason | Comments | + + + | Care Management | orders for [facility] care facility in [place] | + + + Encounter Details +--------+ [...] | | [address] | [place] [address] | [place] ) | | | | [place], [place] | [phone] | | | | | [address] | | | | | | [phone] | | | +--------+ + + + [...] | | | | | | [place] [address] | | | | | | [phone] | | | | | | | | +--------+---------+ + + + | 09/30/ | Office | Hematology & | Vonda Wang, | | | 2017 | Visit | Oncology | [address] | | | | | | [place] | | | | | | [address] | | | | | | [phone] | | | | | | | | +--------+---------+ + + + as of this encounter Visit Diagnoses + + | Diagnosis | + + | Type 2 diabetes mellitus (HCC) - Primary | + +"
--- OUTSIDE RECORDS SUMMARY | ~2018-05-25 | XMS | Encounter Summary ---
Demographics + + + | Address | [address] | | | [place] [address] | + + + | Home Phone [...] [place], | | | | | [place] [address] | | + + + + + Care Team Providers + +------+ + | Care Buffing Wheel Operator Name | Role | Phone | [...] for CT) | | | | [place] [address] | | | | | | [phone] | | | +--------+ + + + [...] | | | | | | [place] [address] | | | | | | [phone] | | | | | | | | +--------+---------+ + + + | 09/30/ | Office | Hematology & | Vonda Wang, | | | 2017 | Visit | Oncology | [address] | | | | | | [place] | | | | | | [address] | | | | | | [phone] | | | | | | | [...]
--- OUTSIDE RECORDS SUMMARY | ~2018-05-25 | XMS | Encounter Summary ---
Demographics + + + | Address | [address] | | | [place] [address] | + + + | Home Phone | | + + + | Preferred Language | Unknown | + + + | Marital Status | Single | + + + | Nondenominational Affiliation | CHR | + + + [...] WAYNE COLEY | ECON | [address] | | | [place] | | [place], | | | | | [place] [address] | | + + + + + Care Team Providers + +------+ + | Care Sprigger Name | Role | Phone | + [...] | | ascending | St THE | [place], | | | | | colon (HCC) | [place], [place] | [place] [address] | | | | | Procedures | [address] | | | | | | CT CHEST W | Phone: | | | | | | CONTRAST | [phone] | | | | | | | Fax: | | | | | | | [phone] | | +--------+--------+ + + + + [...] | | ascending | St THE | [place], | | | | | colon (HCC) | [place], [place] | [place] [address] | | | | | Procedures | [address] | | | | | | CT CHEST W | Phone: | | | | | | CONTRAST | [phone] | | | | | | | Fax: | | | | | | | [phone] | | +--------+--------+ + + + + [...] | | ascending | St THE | [place], | | | | | colon (HCC) | [place] | [place] [address] | | | | | Procedures | [address] | | | | | | CT CHEST W | Phone: | | | | | | CONTRAST | [phone] | | | | | | | Fax: | | | | | | | [phone] | | +--------+--------+ + + + + Encounter Details +--------+ + + + + | Date | Type | Department | Care Team | Description | +--------+ + + + + | 03/12/ | Hospital | Diagnostic Imaging | Vonda Salinas, | | | 2017 | Encounter | at [facility] | MD [address] | | | | | [address] | [place], [place] | | | | | [place], [place] | [address] | | | | | [address] | [phone] | | | | | | | [...] | | | | | | [place] [address] | | | | | | [phone] | | | | | | | | +--------+---------+ + + + | 09/30/ | Office | Hematology & | Vonda Salinas, | | | 2017 | Visit | Oncology | [address] | | | | | | [place] | | | | | | [address] | | | | | | [phone] | | | | | | | | +--------+---------+ + + + as of this encounter Results CT CHEST W CONTRAST (03/12/2018 11:26 AM) + + + | Specimen | Performing Laboratory | + + + | | [facility] | + + + + + | Narrative | + + | [address] | | [place] [address] | | [phone] Name: | | WYATT COLEY Phys: VONDA SALINAS : 1965 Sex: | | M CSN: [id number] MR# [id number] Exam Date: | | 03/12/2018 EXAM: CT [...] MD Transcribed Date/Time: 03/12/2018 21:39 | | Welding Machine Operator Electroslag: CORAZON | + + + + | Procedure Note | + + | Interface, Radiology Results - 03/12/2018 9:43 PM PDT [address] | | [address] [place] [address] | | Name: WYATT COLEY Phys: VONDA SALINAS : 1965 Sex: M CSN: | | [id number] MR# [id number] Exam Date: 03/12/2018 EXAM:CT CHEST WITH CONTRAST | | CLINICAL HISTORY:Follow-up colon cancer with lung metastases, status post resection | | [id number]. COMPARISON:Chest CT 01/25/2017. TECHNIQUE:Axial CT images were [...] | | |Transcribed Date/Time: 03/12/2018 21:39 | |Welding Machine Operator Electroslag: FLUENCY | | | | | | [...]
--- OUTSIDE RECORDS SUMMARY | ~2018-05-25 | XMS | Encounter Summary ---
Demographics + + + | Address | [address] | | | [place] [address] | + + + | Home Phone | | + + + | Preferred Language | Unknown | + + + | Marital Status | Single | + + + | Adventist Affiliation | CHR | + + + | Race | White | + + + | Ethnic Group | Not or | + + + Author + + + | Author | [facility] | + + + | Organization | [facility] | + + + [...] [place], | | | | | [place] [address] | | + + + + + Care Team Providers + +------+ + | Care Vamp Cut Out Worker Name | Role | Phone | [...] | | | | Street The | [address] | | | | | [place] | [phone] | | | | | [address] | | | | | | [phone] | | | +--------+ + + + [...] | | | | | | [place] [address] | | | | | | [phone] | | | | | | | | +--------+---------+ + + + | 09/30/ | Office | Hematology & | Vonda Wang, | | | 2017 | Visit | Oncology | [address] | | | | | | [place] | | | | | | [address] | | | | | | [phone] | | | | | | | | +--------+---------+ + + + as of this encounter Visit Diagnoses Not on filein this encounter"
--- OUTSIDE RECORDS SUMMARY | ~2018-05-25 | XMS | Encounter Summary ---
Demographics + + + | Address | [address] | | | [place] [address] | + + + | Home Phone [...] | + + + + + | WAYEN COLEY | ECON | [address] | | | [place] | | [place], | | | | | [place] [address] | | + + + + + Care Team Providers + +------+ + | Care Solar Panel Installation Supervisor Name | Role | Phone | [...] | | | | [place] | [address] | | | | | [address] | [phone] | | | | | [phone] | | | +--------+ + + + [...] | | | | | | [place] [address] | | | | | | [phone] | | | | | | | | +--------+---------+ + + + | 09/30/ | Office | Hematology & | Vonda Wang, | | | 2017 | Visit | Oncology | [address] | | | | | | [place] | | | | | | [address] | | | | | | [phone] | | | | | | | | +--------+---------+ + + + as of this encounter Visit Diagnoses Not on filein this encounter"
--- OUTSIDE RECORDS SUMMARY | ~2018-05-25 | XMS | Encounter Summary ---
Demographics + + + | Address | [address] | | | [place] [address] | + + + | Home Phone | | + + + | Preferred Language | Unknown | + + + | Marital Status | Single | + + + | Sikh Affiliation | CHR | + + + | Race | White | + + + | Ethnic Group | Not or | + + + Author + + + | Author | [facility] | + + + | Organization | [facility] | + + + [...] [place], | | | | | [place] [address] | | + + + + + Care Team Providers + +------+ + | Care Track Laying Machine Operator Name | Role | Phone [...] | [address] | [place] [address] | | | | | [place], [place] | [phone] | | | | | [address] | | | | | | [phone] | | | +--------+ + + + [...] | | | | | | [place] [address] | | | | | | [phone] | | | | | | | | +--------+---------+ + + + | 09/30/ | Office | Hematology & | Vonda Wang, | | | 2017 | Visit | Oncology | [address] | | | | | | [place] | | | | | | [address] | | | | | | [phone] | | | | | | | | +--------+---------+ + + + as of this encounter Visit Diagnoses Not on filein this encounter"
--- OUTSIDE RECORDS SUMMARY | ~2018-05-25 | XMS | Encounter Summary ---
Demographics + + + | Address | [address] | | | [place] [address] | + + + | Home Phone [...] [place], | | | | | [place] [address] | | + + + + + Care Team Providers + +------+ + | Care Application Security Developer Name | Role | Phone | [...] | [address] | [place] [address] | | | | | [place], [place] | [phone] | | | | | [address] | | | | | | [phone] | | | +--------+--------+ + + + [...] | | | | | | [place] [address] | | | | | | [phone] | | | | | | | | +--------+---------+ + + + | 09/30/ | Office | Hematology & | Vonda Wang, | | | 2017 | Visit | Oncology | [address] | | | | | | [place] | | | | | | [address] | | | | | | [phone] | | | | | | | | +--------+---------+ + + + as of this encounter Visit Diagnoses Not on filein this encounter"
--- OUTSIDE RECORDS SUMMARY | ~2018-05-25 | XMS | Encounter Summary ---
Demographics + + + | Address | [address] | | | [place] [address] | + + + | Home Phone [...] + + + | Author | [facility] | + + + | Organization | [facility] | + + + [...] [place], | | | | | [place] [address] | | + + + + + Care Team Providers + +------+ + | Care Picking Belt Operator Name | Role | Phone | [...] | [address] | [place] [address] | | | | | [place], [place] | [phone] | | | | | [address] | | | | | | [phone] | | | +--------+--------+ + + + [...] | | | | | | [place] [address] | | | | | | [phone] | | | | | | | | +--------+---------+ + + + | 09/30/ | Office | Hematology & | Vonda Wang, | | | 2017 | Visit | Oncology | [address] | | | | | | [place] | | | | | | [address] | | | | | | [phone] | | | | | | | | +--------+---------+ + + + as of this encounter Visit Diagnoses Not on filein this encounter"
--- OUTSIDE RECORDS SUMMARY | ~2018-05-25 | XMS | Encounter Summary ---
Demographics + + + | Address | [address] | | | [place] [address] | + + + | Home Phone [...] Author + + + | Author | [facility] | + + + | Organization | [facility] | + + + [...] [place], | | | | | [place] [address] | | + + + + + Care Team Providers + +------+ + | Care Civil Engineering Drafter Name | Role | Phone | + +------+ + | Thlaia Georges MD | PCP | | + [...] | | | | [place] | [address] | | | | | [address] | [phone] | | | | | [phone] | | | +--------+ + + + [...] | | | | | | [place] [address] | | | | | | [phone] | | | | | | | | +--------+---------+ + + + | 09/30/ | Office | Hematology & | Vonda Wang, | | | 2017 | Visit | Oncology | [address] | | | | | | [place] | | | | | | [address] | | | | | | [phone] | | | | | | | | +--------+---------+ + + + as of this encounter Visit Diagnoses Not on filein this encounter"
--- OUTSIDE RECORDS SUMMARY | ~2018-05-25 | XMS | Encounter Summary ---
Demographics + + + | Address | [address] | | | [place] [address] | + + + | Home Phone | | + + + | Preferred Language | Unknown | + + + | Marital Status | Single | + + + | Moravian Affiliation | CHR | + + + [...] [place], | | | | | [place] [address] | | + + + + + Care Team Providers + +------+ + | Care Data Modeling Architect Name | Role | Phone | + [...] | | | | stage IV | [address] | | | | | | Left upper | Phone: | | | | | | quadrant | [phone] | | | | | | pain | Fax: | | | | | | Procedures | [phone] | | | | | | CT [...] Office | [facility] | Sherrie Cook, SAND DRIER | Personal history of | | 2018 | Visit | Center - Medical | [address] | colon cancer, stage | | | | Oncology [address] | [place] [address] | IV (Primary Dx); | | | | Street The | [phone] | Left upper quadrant | | | | [place] | | pain | | | | [address] | | | | | | [phone] | | | +--------+---------+ + + + [...] 7 - 51 U/L Final EGFR - TRISTANIAN 03/12/2018 >60 >60 mL/min Final EGFR NON -TRISTANIAN 03/12/2018 >60 >60 mL/min Final ANION GAP [...] Reactions Penicillins Hives Medications history reviewed. A tow feeder was offered to the patient and they [...] | | | | | | [place] [address] | | | | | | [phone] | | | | | | | | +--------+---------+ + + + | 09/30/ | Office | Hematology & | Vonda Wang | | | 2017 | Visit | Oncology | [address] | | | | | | [place] | | | | | | [address] | | | | | | [phone] | | | | | | | [...]
--- OUTSIDE RECORDS SUMMARY | ~2018-05-25 | XMS | Encounter Summary ---
Demographics + + + | Address | [address] | | | [place] [address] | + + + | Home Phone [...] [place], | | | | | [place] [address] | | + + + + + Care Team Providers + +------+ + | Care Campus Receptionist Name | Role | Phone | + [...] [place], | | | | | [address] | [place] [address] | | | | | [place], [place] | [phone] | | | | | [address] | | | | | | [phone] | | | +--------+--------+ + + + [...] | | | | | | [place] [address] | | | | | | [phone] | | | | | | | | +--------+---------+ + + + | 09/30/ | Office | Hematology & | Vonda Wang | | | 2017 | Visit | Oncology | [address] | | | | | | [place] | | | | | | [address] | | | | | | [phone] | | | | | | | | +--------+---------+ + + + as of this encounter Visit Diagnoses Not on filein this encounter"
--- OUTSIDE RECORDS SUMMARY | ~2018-05-25 | XMS | Clinical Summary ---
Demographics + + + | Address | [address] | | | [place] [address] | + + + | Home Phone | | + + + | Preferred Language | Unknown | + + + | Marital Status | Single | + + + | Tenriism Affiliation | CHR | + + + [...] [place], | | | | | [place] [address] | | + + + + + Care Team Providers + +------+ + | Care Freight Rate Clerk Name | Role | Phone | + +------+ + | Thalia Georges MD | PP | | + +------+ + Source Comments VERNON is fully live on both [facility] Ambulatory and [facility] InPatient.[facility] Allergies + + + + + + [...] CHW CARE PLANIdentified Problems/Needs: Pt referred by [facility] for transportation | | assistance. 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 09/13/16 Left to see if pt was able to bean picker machine operator vouchers and Link tickets [...] in | | | | | | [place] ) | +--------+ + + + + [...] | | | | layer exposed ([facility]); | | | | | | Need for | | | | | | [id number] | | | | | | ertussis [...] | | | | | | [place] [address] | | | | | | [phone] | | | | | | | | +--------+---------+ + + + | 09/30/ | Office | | Glory [place]inas, | | | 2017 | Visit | | MD [address] | | | | | | [facility] [place] | | | | | | [address] | | | | | | [phone] | | | | | | | [...] Narrative | + + | [address] | | [place] [address] | | [phone] Name: | | WYATT COLEY Phys: GLORY SALINAS : 1965 Sex: | | M CSN: [id number] MR# [id number] Exam Date: | | 03/12/2018 EXAM: CT [...] MD Transcribed Date/Time: 03/12/2018 21:39 | | Pesticide Applicator: FLUENCY | + + + + | Procedure Note | + + | Interface, Radiology Results - 03/12/2018 9:43 PM PDT [address] | | [address] [place] [address] | | Name: WYATT COLEY Phys: GLORY SALINAS : 1965 Sex: M CSN: | | [id number] MR# [id number] Exam Date: 03/12/2018 EXAM:CT CHEST WITH CONTRAST | | CLINICAL HISTORY:Follow-up colon cancer with lung metastases, status post resection | | [id number]. COMPARISON:Chest CT 01/25/2017. TECHNIQUE:Axial CT images were [...] | | |Transcribed Date/Time: 03/12/2018 21:39 | |Pesticide Applicator: FLUENCY | | | | | | [...] | ------ CBC AND AUTO | | DIFF[[id number]] Abnormal Final | | result Please view [...] | + + + | Blood | [facility] | | | [place] [address] | + + + CARCINOEMBRYONIC AG, SERUM (03/12/2018 10:33 AM) + +-------+ + | Component | Value | Ref Range | + +-------+ + | CEA-CARCINOEMBRYONIC | 2.4 | ng/mL | | AG, SERUM | | | + +-------+ + + + + | Specimen | Performing Laboratory | + + + | Blood | [facility] | | | [place] [address] | + + + + + | [...] | >60 | >60 mL/min | | [place] | | | + +---------+ + | EGFR NON | >60 | >60 mL/min | | -[place] | | | + +---------+ + | [...] | + + + | Blood | [address] [facility] | | | [place] [address] | + + + + + | [...] | [employer] | | | [address] | [place] [address] | | | RE PPO | | [...] Home: | [address] | | | al/Fam | | 1965 | [phone] | [place] [address] | | | rell | | | [phone] | | + +--------+ +--------+ + +
[~2018-05-25 18:02] MED LIST: METOPROLOL TAR100 MG
[2018-05-25] MEDS ORDERED: TRAZODONE HCL100 MG PO (18:10)
[2018-05-25] MEDS ORDERED: ASPIRIN325 MG PO (18:10)
[2018-05-25] MEDS ORDERED: JANUVIA50 MG PO (18:10)
[2018-05-25] MEDS ORDERED: POTASSIUM CHLO20 ME1 PO (18:10)
[2018-05-25] MEDS ORDERED: CARTIA XT240 MG PO (18:10)
[2018-05-25] MEDS ORDERED: ADVAIR 250-501 EACH INH (18:11)
[2018-05-25] MEDS ORDERED: PROAIR HFA8.5 GM INH (18:11)
[2018-05-25] MEDS ORDERED: TORSEMIDE20 MG PO (18:11)
[2018-05-25] MEDS ORDERED: GLIMEPIRIDE2 MG PO (18:11)
[2018-05-25] MEDS ORDERED: KEFLEX500 MG PO (18:11)
[2018-05-25] MEDS ORDERED: ZITHROMAX250 MG PO (18:36)
== END 2018-05-25 18:48 | disposition home or self-care (01) ==
LOC: ED 18:02
DX: H66.92 Otitis media, unspecified, left ear (principal); E11.9 Type 2 diabetes mellitus without complications; I10 Essential (primary) hypertension; J44.9 Chronic obstructive pulmonary disease, unspecified; Z88.0 Allergy status to penicillin; Z79.84 Long term (current) use of oral hypoglycemic drugs; Z79.82 Long term (current) use of aspirin; Z79.899 Other long term (current) drug therapy
CPT/HCPCS: 99282

== ENCOUNTER 2018-05-31 18:11 | Emergency (ER) | payer MEDICARE ==
[~2018-05-31] VITALS: Ht 172.7 cm; Wt 145.2 kg
--- OUTSIDE RECORDS SUMMARY | ~2018-05-31 | XMS | Encounter Summary ---
Demographics + + + | Address | [address] | | | [place] [address] | + + + | Home Phone | | + + + | Preferred Language | Unknown | + + + | Marital Status | Single | + + + | Amish Affiliation | CHR | + + + | Race | White | + + + | Ethnic Group | Not or | + + + Author + + + | Author | [facility] | + + + | Organization | [facility] | + + + | Address | Unknown | + + + | Phone | Unavailable | + + + Support + + + + + | Name | Relationship | Address | Phone | + + + + + | WAYNE COLEY | ECON | [address] | | | [place] | | [place], | | | | | [place] [address] | | + + + + + Care Team Providers + +------+ + | Care Health Service Coordinator Name | Role | Phone | + +------+ + | Thalia Georges MD | PCP | | + +------+ + Reason for Visit + + + | Reason | Comments | + + + | Referral To Rehab | | | Medicine | | + + + Encounter Details +--------+ + + + + | Date | Type | Department | Care Team | Description | +--------+ + + + + | 05/05/ | Telephone | [facility] | Thalia Georges | Referral To Rehab | | 2018 | | Medical Clinic | MD Fabien [address] | Medicine | | | | Internal Medicine | [address] [place], | | | | | [address] | [place] [address] | | | | | [place], [place] | [phone] | | | | | [address] | | | | | | [phone] | | | +--------+ + + + + Social History + +-------+ +--------+------+ | Tobacco Use | Types | Packs/Day | Years | Date | | | | | Used | | + +-------+ +--------+------+ | Never Smoker | | | | | + +-------+ +--------+------+ + +------+---+---+ | Smokeless Tobacco: | Chew | | | | Current User | | | | + +------+---+---+ + + | Comments: marijuana and chews | + + + + +---------+ + | Alcohol Use | Drinks/We | oz/Week | Comments | | | ek | | | + + +---------+ + | Yes | 84 Cans | 50.4 | one 6 pack and two 24 talls | | | of beer | | | | | 0 | | | | | Standard | | | | | drinks or | | | | | | | | | | equivalen | | | | | t | | | + + +---------+ + + + + | Sex Assigned at | Date Recorded | | | | + + + | Not on file | | + + + as of this encounter Plan of Treatment +--------+---------+ + + + | Date | Type | Specialty | Care Team | Description | +--------+---------+ + + + | 07/10/ | Office | Internal Medicine | [place]alia Georges | | | 2017 | Visit | MD [address] | | | | | | [place] | | | | | | [place] [address] | | | | | | [phone] | | | | | | | | +--------+---------+ + + + | 09/30/ | Office | Hematology & | Vonda Wang, | | | 2017 | Visit | Oncology | [address] | | | | | | [place] | | | | | | [address] | | | | | | [phone] | | | | | | | | +--------+---------+ + + + as of this encounter Visit Diagnoses Not on filein this encounter"
--- OUTSIDE RECORDS SUMMARY | ~2018-05-31 | XMS | Encounter Summary ---
Demographics + + + | Address | [address] | | | [place] [address] | + + + | Home Phone | | + + + | Preferred Language | Unknown | + + + | Marital Status | Single | + + + | Voodoo Affiliation | CHR | + + + | Race | White | + + + | Ethnic Group | Not or | + + + Author + + + | Author | [facility] | + + + | Organization | [facility] | + + + | Address [...] [place], | | | | | [place] [address] | | + + + + + Care Team Providers + +------+ + | Care Public Policy Analyst Name | Role | Phone | + +------+ + | Thalia Georges MD | PCP | | + +------+ + Encounter Details +--------+------+ + + + | Date | Type | Department | Care Team | Description | +--------+------+ + + + | 03/12/ | Lab | [facility] | | | | 2017 | | Center - Lab [address] | | | | | | Street The | | | | | | [place] | | | | | | [address] | | | | | | [phone] | | | +--------+------+ + + + Social History + +-------+ [...] | | | 2017 | Visit | | MD [address] | | | | | | [place], | | | | | | [place] [address] | | | | | | [phone] | | | | | | | | +--------+---------+ + + + | 09/30/ | Office | Hematology & | Vonda Wang, | | | 2017 | Visit | Oncology | [address] | | | | | | [place] | | | | | | [address] | | | | | | [phone] | | | | | | | | +--------+---------+ + + + as of this encounter Visit Diagnoses Not on filein this encounter"
--- OUTSIDE RECORDS SUMMARY | ~2018-05-31 | XMS | Encounter Summary ---
Demographics + + + | Address | [address] | | | [place] [address] | + + + | Home Phone | | + + + | Preferred Language | Unknown | + + + | Marital Status | Single | + + + | Yarsanism Affiliation | CHR | + + + [...] [place], | | | | | [place] [address] | | + + + + + Care Team Providers + +------+ + | Care Stroboscope Operator Name | Role | Phone | + +------+ + | Thalia Georges MD | PCP | | + +------+ + Encounter Details +--------+ + + + + | Date | Type | Department | Care Team | Description | +--------+ + + + + | 03/18/ | Document-Sc | Sleep Medicine at | Baudilio Zepeda, | | | 2018 | anned | [facility] [address] | | | | | [place] | [place] | | | | | [place] | [address] | | | | | [address] | [phone] | | | | | [phone] | | | +--------+ + + + [...] | | | | | | [place] [address] | | | | | | [phone] | | | | | | | | +--------+---------+ + + + | 09/30/ | Office | Hematology & | Vonda Wang, | | | 2017 | Visit | Oncology | [address] | | | | | | [place] | | | | | | [address] | | | | | | [phone] | | | | | | | | +--------+---------+ + + + as of this encounter Visit Diagnoses Not on filein this encounter"
--- OUTSIDE RECORDS SUMMARY | ~2018-05-31 | XMS | Encounter Summary ---
Demographics + + + | Address | [address] | | | [place] [address] | + + + | Home Phone | | + + + | Preferred Language | Unknown | + + + | Marital Status | Single | + + + | Taoist Affiliation | CHR | + + + [...] [place], | | | | | [place] [address] | | + + + + + Care Team Providers + +------+ + | Care Computer Engineering Technologist Name | Role | Phone | + +------+ + | Thalia Georges MD | PCP | | + +------+ + Reason for Visit + + + | Reason | Comments | + + + | Implantable venous | access for CT | | access port | | + + + Encounter Details +--------+ + + + + | Date | Type | Department | Care Team | Description | +--------+ + + + + | 03/12/ | Clinical | [facility] | | Implantable venous | | 2018 | Support | Center [address] | | access port (access | | | Staff | Kartik Eduardo [place], | | for CT) | | | | [place] [address] | | | | | | [phone] | | | +--------+ + + + [...] + + + | Blood Pressure | 132/54 | 03/12/2018 11:30 AM PDT | + + + + | Pulse | 100 | 03/12/2018 11:30 AM PDT | + + + + | Temperature | 35.9 C (96.6 F) | 03/12/2018 11:30 AM PDT | + + + + | Respiratory Rate | 22 | 03/12/2018 11:30 AM PDT | + + + + | Oxygen Saturation | - | - | + + + + | Inhaled Oxygen | - | - | | Concentration | | | + + + + | Weight | - | - | + + + + | Height | - | - | + + + + | Body Mass Index | - | - | + + + + in this encounter Progress Notes Eve Magana RN - 03/12/2018 10:30 AM PDTJohn comes in today for CT access and port flus h. Patient is ambulatory and has a steady gait without any walking aid. He is AOx3, VSS and weight is stable. Port accessed per protocol and brisk blood return obtained. Port site kike n dry and intact. Port flushed per protocol and deaccessed. Pt offers no complaints. He was discharged ambulatory and steady gait with next return appt. Eve Magana RN in this encounter Plan of Treatment +--------+---------+ + + + | Date | Type | Specialty | Care Team | Description | +--------+---------+ + + + | 07/10/ | Office | Internal Medicine | Thalia Georges | | | 2017 | Visit | | MD Pietro Conn | | | | | | [place] | | | | | | [place] [address] | | | | | | [phone] | | | | | | | | +--------+---------+ + + + | 09/30/ | Office | Hematology & | Vonda Wang, | | | 2017 | Visit | Oncology | [address] | | | | | | [place] | | | | | | [address] | | | | | | [phone] | | | | | | | | +--------+---------+ + + + as of this encounter Visit Diagnoses + + | Diagnosis | + + | Port catheter in place - Primary | + + | Other postprocedural status | + + | Malignant neoplasm of colon, unspecified part of colon (HCC) | + + Administered Medications + +--------+ +-------+------+------+ | Medication Order | MAR | Action | Dose | Rate | Site | | | Action | Date | | | | + +--------+ +-------+------+------+ | heparin 100 unit/mL IV flush | Given | | 500 | | | | 500 Units 500 Units, | | 8 10:33 | Units | | | | intravenous, NEEDED, Starting | | PDT | | | | | 03/12/18 at 1022, Until Wed | | | | | | | 03/12/18 at 1256, deaccessing | | | | | | | line/port | | | | | | + +--------+ +-------+------+------+ + +---+ | | | + +---+ | heparin 100 unit/mL IV flush 1 | | | dose, Starting 03/12/18 at | | | 1048, Until 03/12/18 at 1033 | | + +---+ | | | + +---+ + +-------+ +-------+---+---+ | NaCl flush 5 mL 5 mL, | Given | | 20 mL | | | | intravenous, NEEDED, Starting | | 8 10:30 | | | | | 03/12/18 at 1022, Until Wed | | PDT | | | | | 03/12/18 at 1256, line patency | | | | | | + +-------+ +-------+---+---+ + +---+ | | | + +---+ | NaCl flush 1 dose, Starting | | | 03/12/18 at 1048, Until Wed | | | 18 at 1030 | | + +---+ | | | + +---+ in this encounter"
--- OUTSIDE RECORDS SUMMARY | ~2018-05-31 | XMS | Encounter Summary ---
Demographics + + + | Address | [address] | | | [place] [address] | + + + | Home Phone | | + + + | Preferred Language | Unknown | + + + | Marital Status | Single | + + + | Religion Affiliation | CHR | + + + | Race | White | + + + | Ethnic Group | Not or | + + + Author + + + | Author | [facility] | + + + | Organization | [facility] | + + + [...] [place], | | | | | [place] [address] | | + + + + + Care Team Providers + +------+ + | Care Candy Depositing Machine Operator Name | Role | Phone | [...] Description | +--------+--------+ + + + | 05/07/ | Refill | [facility] | Thalia Georges | Refill Request | | 2018 | | Medical Clinic | MD Fabien [address] | | | | | Internal Medicine | [place], | | | | | [address] | [place] [address] | | | | | [place], [place] | [phone] | | | | | [address] | | | | | | [phone] | | | +--------+--------+ + + + [...] | | | | | | [place] [address] | | | | | | [phone] | | | | | | | | +--------+---------+ + + + | 09/30/ | Office | Hematology & | Vonda Wang, | | | 2017 | Visit | Oncology | [address] | | | | | | [place] | | | | | | [address] | | | | | | [phone] | | | | | | | | +--------+---------+ + + + as of this encounter Visit Diagnoses Not on filein this encounter"
--- OUTSIDE RECORDS SUMMARY | ~2018-05-31 | XMS | Encounter Summary ---
Demographics + + + | Address | [address] | | | [place] [address] | + + + | Home Phone | | + + + | Preferred Language | Unknown | + + + | Marital Status | Single | + + + | Druze Affiliation | CHR | + + + | Race | White | + + + | Ethnic Group | Not or | + + + Author + + + | Author | [facility] | + + + | Organization | [facility] | + + + | [...] [place], | | | | | [place] [address] | | + + + + + Care Team Providers + +------+ + | Care Rocket Motor Tester Name | Role | Phone | + +------+ + | Thalia Georges MD | PCP | | + +------+ + Encounter Details +--------+ + + + + | Date | Type | Department | Care Team | Description | +--------+ + + + + | 04/22/ | Document-Sc | [facility] | Thalia Georges | | | 2018 | [place] | [facility] | MD [address] | | | | | Internal Medicine | [place], | | | | | [address] | [place] [address] | | | | | [place] | [phone] | | | | | [address] | | | | | | [phone] | | | +--------+ + + + [...] [place] | | | | | | [place], | | | | | | [place] [address] | | | | | | [phone] | | | | | | | | +--------+---------+ + + + | 09/30/ | Office | Hematology & | Vonda Wang, | | | 2017 | Visit | Oncology | [address] | | | | | | [place] | | | | | | [address] | | | | | | [phone] | | | | | | | | +--------+---------+ + + + as of this encounter Visit Diagnoses Not on filein this encounter"
--- OUTSIDE RECORDS SUMMARY | ~2018-05-31 | XMS | Encounter Summary ---
Demographics + + + | Address | [address] | | | [place] [address] | + + + | Home Phone | | + + + | Preferred Language | Unknown | + + + | Marital Status | Single | + + + | Baptist Affiliation | CHR | + + + | Race | White | + + + | Ethnic Group | Not or | + + + Author + + + | Author | [facility] | + + + | Organization | [facility] | + + [...] [place], | | | | | [place] [address] | | + + + + + Care Team Providers + +------+ + | Care Physics Instructor Name | Role | Phone | + [...] | | | | [place] | [address] | | | | | [address] | [phone] | | | | | [phone] | | | +--------+ + + + [...] | | | | | | [place] [address] | | | | | | [phone] | | | | | | | | +--------+---------+ + + + | 09/30/ | Office | Hematology & | Vonda Wang, | | | 2017 | Visit | Oncology | [address] | | | | | | [place] | | | | | | [address] | | | | | | [phone] | | | | | | | | +--------+---------+ + + + as of this encounter Visit Diagnoses Not on filein this encounter"
--- OUTSIDE RECORDS SUMMARY | ~2018-05-31 | XMS | Encounter Summary ---
Demographics + + + | Address | [address] | | | [place] [address] | + + + | Home Phone | | + + + | Preferred Language | Unknown | + + + | Marital Status | Single | + + + | Holiness Affiliation | CHR | + + + | Race | White | + + + | Ethnic Group | Not or | + + + Author + + + | Author | [facility] | + + + | Organization | [facility] | + + + [...] [place], | | | | | [place] [address] | | + + + + + Care Team Providers + +------+ + | Care Marine Engine Machinist Name | Role | Phone | + +------+ + | Thalia Georges MD | PCP | | + +------+ + Reason for Visit +--------+ + | Reason | Comments | +--------+ + | Other | port flush | +--------+ + Encounter Details +--------+ + + + + | Date | Type | Department | Care Team | Description | +--------+ + + + + | 05/05/ | Telephone | [facility] | Vonda Wang, | Other (port flush) | | 2018 | | Center - Medical | MD [address] | | | | | Oncology [address] | [place], [place] | | | | | Street The | [address] | | | | | [place] | [phone] | | | | | [address] | | | | | | [phone] | | | +--------+ + + + [...] | | | | | | [place] [address] | | | | | | [phone] | | | | | | | | +--------+---------+ + + + | 09/30/ | Office | Hematology & | Vonda Wang, | | | 2017 | Visit | Oncology | [address] | | | | | | [place] | | | | | | [address] | | | | | | [phone] | | | | | | | | +--------+---------+ + + + as of this encounter Visit Diagnoses Not on filein this encounter"
--- OUTSIDE RECORDS SUMMARY | ~2018-05-31 | XMS | Encounter Summary ---
Demographics + + + | Address | [address] | | | [place] [address] | + + + | Home Phone [...] [place], | | | | | [place] [address] | | + + + + + Care Team Providers + +------+ + | Care Mid Level Business Analyst Name | Role | Phone | [...] | | ascending | St THE | [place], | | | | | colon (HCC) | [place], [place] | [place] [address] | | | | | Procedures | [address] | | | | | | CT CHEST W | Phone: | | | | | | CONTRAST | [phone] | | | | | | | Fax: | | | | | | | [phone] | | +--------+--------+ + + + + [...] | | ascending | St THE | [place], | | | | | colon (HCC) | [place], [place] | [place] [address] | | | | | Procedures | [address] | | | | | | CT CHEST W | Phone: | | | | | | CONTRAST | [phone] | | | | | | | Fax: | | | | | | | [phone] | | +--------+--------+ + + + + [...] | | ascending | St THE | [place], | | | | | colon (HCC) | [place] | [place] [address] | | | | | Procedures | [address] | | | | | | CT CHEST W | Phone: | | | | | | CONTRAST | [phone] | | | | | | | Fax: | | | | | | | [phone] | | +--------+--------+ + + + + Encounter Details +--------+ + + + + | Date | Type | Department | Care Team | Description | +--------+ + + + + | 03/12/ | Hospital | Diagnostic Imaging | Vonda Salinas, | | | 2017 | Encounter | at [facility] | MD [address] | | | | | [address] | [place], [place] | | | | | [place], [place] | [address] | | | | | [address] | [phone] | | | | | | | [...] | | | | | | [place] [address] | | | | | | [phone] | | | | | | | | +--------+---------+ + + + | 09/30/ | Office | Hematology & | Vonda Salinas, | | | 2017 | Visit | Oncology | [address] | | | | | | [place] | | | | | | [address] | | | | | | [phone] | | | | | | | | +--------+---------+ + + + as of this encounter Results CT CHEST W CONTRAST (03/12/2018 11:26 AM) + + + | Specimen | Performing Laboratory | + + + | | [facility] | + + + + + | Narrative | + + | [address] | | [place] [address] | | [phone] Name: | | WYATT COLEY Phys: VONDA SALINAS : 1965 Sex: | | M CSN: [id number] MR# [id number] Exam Date: | | 03/12/2018 EXAM: CT [...] MD Transcribed Date/Time: 03/12/2018 21:39 | | Shuttle Driver: CORAZON | + + + + | Procedure Note | + + | Interface, Radiology Results - 03/12/2018 9:43 PM PDT [address] | | [address] [place] [address] | | Name: WYATT COLEY Phys: VONDA SALINAS : 1965 Sex: M CSN: | | [id number] MR# [id number] Exam Date: 03/12/2018 EXAM:CT CHEST WITH CONTRAST | | CLINICAL HISTORY:Follow-up colon cancer with lung metastases, status post resection | | [id number]. COMPARISON:Chest CT 01/25/2017. TECHNIQUE:Axial CT images were [...] | | |Transcribed Date/Time: 03/12/2018 21:39 | |Shuttle Driver: FLUENCY | | | | | | [...]
--- OUTSIDE RECORDS SUMMARY | ~2018-05-31 | XMS | Encounter Summary ---
Demographics + + + | Address | [address] | | | [place] [address] | + + + | Home Phone [...] Author + + + | Author | [facility] | + + + | Organization | [facility] | + + [...] [place], | | | | | [place] [address] | | + + + + + Care Team Providers + +------+ + | Care Fishing Tool Operator Name | Role | Phone | [...] | [address] | [place] [address] | | | | | [place], [place] | [phone] | | | | | [address] | | | | | | [phone] | | | +--------+ + + + [...] | | | | | | [place] [address] | | | | | | [phone] | | | | | | | | +--------+---------+ + + + | 09/30/ | Office | Hematology & | Vonda Wang, | | | 2017 | Visit | Oncology | [address] | | | | | | [place] | | | | | | [address] | | | | | | [phone] | | | | | | | | +--------+---------+ + + + as of this encounter Visit Diagnoses Not on filein this encounter"
--- OUTSIDE RECORDS SUMMARY | ~2018-05-31 | XMS | Encounter Summary ---
Demographics + + + | Address | [address] | | | [place] [address] | + + + | Home Phone | | + + + | Preferred Language | Unknown | + + + | Marital Status | Single | + + + | Restorationist Affiliation | CHR | + + + [...] [place], | | | | | [place] [address] | | + + + + + Care Team Providers + +------+ + | Care Plasma Processing Technician Name | Role | Phone | [...] [place] | | | | | [place] [address] | [address] | | | | | [phone] | | | +--------+ + + + [...] | | | | | | [place] [address] | | | | | | [phone] | | | | | | | | +--------+---------+ + + + | 09/30/ | Office | Hematology & | Vonda Wang, | | | 2017 | Visit | Oncology | [address] | | | | | | [place] | | | | | | [address] | | | | | | [phone] | | | | | | | | +--------+---------+ + + + as of this encounter Visit Diagnoses Not on filein this encounter"
--- OUTSIDE RECORDS SUMMARY | ~2018-05-31 | XMS | Encounter Summary ---
Demographics + + + | Address | [address] | | | [place] [address] | + + + | Home Phone | | + + + | Preferred Language | Unknown | + + + | Marital Status | Single | + + + | Sabianism Affiliation | CHR | + + + [...] [place], | | | | | [place] [address] | | + + + + + Care Team Providers + +------+ + | Care Machine Tool Electrician Name | Role | Phone | + [...] | [address] | [place] [address] | | | | | [place], [place] | [phone] | | | | | [address] | | | | | | [phone] | | | +--------+ + + + [...] | | | | | | [place] [address] | | | | | | [phone] | | | | | | | | +--------+---------+ + + + | 09/30/ | Office | Hematology & | Vonda Wang, | | | 2017 | Visit | Oncology | [address] | | | | | | [place] | | | | | | [address] | | | | | | [phone] | | | | | | | | +--------+---------+ + + + as of this encounter Visit Diagnoses Not on filein this encounter"
--- OUTSIDE RECORDS SUMMARY | ~2018-05-31 | XMS | Encounter Summary ---
Demographics + + + | Address | [address] | | | [place] [address] | + + + | Home Phone | | + + + | Preferred Language | Unknown | + + + | Marital Status | Single | + + + | Caodaism Affiliation | CHR | + + + | Race | White | + + + | Ethnic Group | Not or | + + + Author + + + | Author | [facility] | + + + | Organization | [facility] | + + + | [...] [place], | | | | | [place] [address] | | + + + + + Care Team Providers + +------+ + | Care Car Shakeout Operator Name | Role | Phone | [...] | | ascending | St THE | [place], | | | | | colon (HCC) | [place], [place] | [place] [address] | | | | | Procedures | [address] | | | | | | CT CHEST W | Phone: | | | | | | CONTRAST | [phone] | | | | | | | Fax: | | | | | | | [phone] | | +--------+--------+ + + + + [...] | | ascending | St THE | [place], | | | | | colon (HCC) | [place], [place] | [place] [address] | | | | | Procedures | [address] | | | | | | CT CHEST W | Phone: | | | | | | CONTRAST | [phone] | | | | | | | Fax: | | | | | | | [phone] | | +--------+--------+ + + + + [...] | | ascending | St THE | [place], | | | | | colon (HCC) | [place] | [place] [address] | | | | | Procedures | [address] | | | | | | CT CHEST W | Phone: | | | | | | CONTRAST | [phone] | | | | | | | Fax: | | | | | | | [phone] | | +--------+--------+ + + + + Encounter Details +--------+ + + + + | Date | Type | Department | Care Team | Description | +--------+ + + + + | 03/12/ | Hospital | Diagnostic Imaging | Vonda Salinas, | | | 2017 | Encounter | at [facility] | MD [address] | | | | | [address] | [place], [place] | | | | | [place], [place] | [address] | | | | | [address] | [phone] | | | | | | | [...] | | | | | | [place] [address] | | | | | | [phone] | | | | | | | | +--------+---------+ + + + | 09/30/ | Office | Hematology & | Vonda Salinas, | | | 2017 | Visit | Oncology | [address] | | | | | | [place] | | | | | | [address] | | | | | | [phone] | | | | | | | | +--------+---------+ + + + as of this encounter Results CT CHEST W CONTRAST (03/12/2018 11:26 AM) + + + | Specimen | Performing Laboratory | + + + | | [facility] | + + + + + | Narrative | + + | [address] | | [place] [address] | | [phone] Name: | | WYATT COLEY Phys: VONDA SALINAS : 1965 Sex: | | M CSN: [id number] MR# [id number] Exam Date: | | 03/12/2018 EXAM: CT [...] MD Transcribed Date/Time: 03/12/2018 21:39 | | Cardiac Sonographer: CORAZON | + + + + | Procedure Note | + + | Interface, Radiology Results - 03/12/2018 9:43 PM PDT [address] | | [address] [place] [address] | | Name: WYATT COLEY Phys: VONDA SALINAS : 1965 Sex: M CSN: | | [id number] MR# [id number] Exam Date: 03/12/2018 EXAM:CT CHEST WITH CONTRAST | | CLINICAL HISTORY:Follow-up colon cancer with lung metastases, status post resection | | [id number]. COMPARISON:Chest CT 01/25/2017. TECHNIQUE:Axial CT images were [...] | | |Transcribed Date/Time: 03/12/2018 21:39 | |Cardiac Sonographer: FLUENCY | | | | | | [...]
--- OUTSIDE RECORDS SUMMARY | ~2018-05-31 | XMS | Encounter Summary ---
Demographics + + + | Address | [address] | | | [place] [address] | + + + | Home Phone | | + + + | Preferred Language | Unknown | + + + | Marital Status | Single | + + + | Yazidism Affiliation | CHR | + + + | Race | White | + + + | Ethnic Group | Not or | + + + Author + + + | Author | [facility] | + + + | Organization | [facility] | + + + [...] [place], | | | | | [place] [address] | | + + + + + Care Team Providers + +------+ + | Care Floor Space Allocator Name | Role | Phone | + [...] for CT) | | | | [place] [address] | | | | | | [phone] | | | +--------+ + + + [...] | | | | | | [place] [address] | | | | | | [phone] | | | | | | | | +--------+---------+ + + + | 09/30/ | Office | Hematology & | Vonda Wang, | | | 2017 | Visit | Oncology | [address] | | | | | | [place] | | | | | | [address] | | | | | | [phone] | | | | | | | [...]
--- OUTSIDE RECORDS SUMMARY | ~2018-05-31 | XMS | Encounter Summary ---
Demographics + + + | Address | [address] | | | [place] [address] | + + + | Home Phone | | + + + | Preferred Language | Unknown | + + + | Marital Status | Single | + + + | Evangelical Affiliation | CHR | + + + [...] [place], | | | | | [place] [address] | | + + + + + Care Team Providers + +------+ + | Care Junior Legal Secretary Name | Role | Phone | + [...] | [address] | [place] [address] | | | | | [place], [place] | [phone] | | | | | [address] | | | | | | [phone] | | | +--------+--------+ + + + [...] | | | | | | [place] [address] | | | | | | [phone] | | | | | | | | +--------+---------+ + + + | 09/30/ | Office | Hematology & | Vonda Wang, | | | 2017 | Visit | Oncology | [address] | | | | | [place] | | | | | | [address] | | | | | | [phone] | | | | | | | | +--------+---------+ + + + as of this encounter Visit Diagnoses Not on filein this encounter"
--- OUTSIDE RECORDS SUMMARY | ~2018-05-31 | XMS | Encounter Summary ---
Demographics + + + | Address | [address] | | | [place] [address] | + + + | Home Phone [...] [place], | | | | | [place] [address] | | + + + + + Care Team Providers + +------+ + | Care Strainer Cleaner Name | Role | Phone | + [...] Description | +--------+--------+ + + + | 05/05/ | Refill | [facility] | Thalia Georges | Refill Request | | 2018 | | Medical Clinic | MD Fabien [address] | | | | | Internal Medicine | [place], | | | | | [address] | [place] [address] | | | | | [place], [place] | [phone] | | | | | [address] | | | | | | [phone] | | | +--------+--------+ + + + [...] | | | | | | [place] [address] | | | | | | [phone] | | | | | | | | +--------+---------+ + + + | 09/30/ | Office | Hematology & | Vonda Wang, | | | 2017 | Visit | Oncology | [address] | | | | | [place] | | | | | | [address] | | | | | | [phone] | | | | | | | | +--------+---------+ + + + as of this encounter Visit Diagnoses Not on filein this encounter"
--- OUTSIDE RECORDS SUMMARY | ~2018-05-31 | XMS | Encounter Summary ---
Demographics + + + | Address | [address] | | | [place] [address] | + + + | Home Phone | | + + + | Preferred Language | Unknown | + + + | Marital Status | Single | + + + | Adventism Affiliation | CHR | + + + | Race | White | + + + | Ethnic Group | Not or | + + + Author + + + | Author | [facility] | + + + | Organization | [facility] | + + + | [...] [place], | | | | | [place] [address] | | + + + + + Care Team Providers + +------+ + | Care Linux Consultant Name | Role | Phone | + [...] | | | | | mellitus | [address] | [address] | | | | | without | [place], | [place], | | | | | complication | [place] | [place] [address] | | | | | , without | [address] | Phone: | | | | | long-term | Phone: | [phone] | | | | | current use | [phone] | Fax: | | | | | of insulin | Fax: | [phone] | | | | | ([facility]) | [phone] | | | | | | Procedures [...] + + | 04/08/ | Office | [facility] | Thalia Georges | Alcohol dependence, | | 2018 | Visit | Medical Clinic | MD Fabien [address] | episodic drinking | | | | Internal Medicine | Bl[address] [place], | behavior ([facility]) | | | | [address] | [place] [address] | (Primary Dx); Type 2 | | | | [place], [place] | [phone] | diabetes mellitus | | | | [address] | | ([facility]); Skin ulcer of | | | | [phone] | | upper arm with fat | | | | | | layer exposed ([facility]); | | | | | | Need for | | | | | | ypmmnozxgi-dyjwnzr-r | | | | | | ertussis [...] [facility]. 4) A referral to [facility] has been submitted. This will be reviewed by our [facility] coordinator and forwarded to the appropriate [...] He still uses marijuana. He has contacted [facility], and has some paperwork to fi out [...] mentioned this to Sherrie Cook at [facility] the , and a CT scan has [...] at self care, with some contacts for [facility]. - Continue to support abstinence and treatment. [...] TO GIVE: TDAP (BOOSTRIX) 4. Need for xozdlhciwb-uhyycrw-aagzoisrx (Tdap) vaccine - STAFF TO GIVE: TDAP (BOOSTRIX) Return in about 3 months (around 07/09/2018). Anamaria Schneider MA - 04/08/2018 3:00 PM PDTFormatting of this note may be different from t jayleen original. Chief Complaint Patient presents with Follow-up visit CC. Medications refill, insomnia & Abd pain Seat Covers Trimmer Offered to Patient: N/A Health Maintenance Due Topic DIABETIC EYE EXAM DIPHTHERIA,TETANUS,and PERTUSSIS (DTaP/Tdap/Td) (1 - Tdap) MONOFILAMENT FOOT EXAM 1. Is the patient sick today? no 2. Do you have allergies to medications, food, a vaccine component or latex? no 3. Has the patient ever had a serious reaction to any vaccine in the past? no 4. Do you have intermediate health problem with heart disease, lung disease, [...] | | | | | | [place] [address] | | | | | | [phone] | | | | | | | | +--------+---------+ + + + | 09/30/ | Office | Hematology & | Vonda Wang, | | | 2017 | Visit | Oncology | [address] | | | | | | [place] | | | | | | [address] | | | | | | [phone] | | | | | | | [...] (HCC) | + + | Need for lzvmdjrssu-fkxmtyl-ucurhzakp (Tdap) vaccine | + + | Need for prophylactic vaccination with combined wfyexvgjqb-whleddh-jluqgkajd (DTP) | | vaccine | + +
--- OUTSIDE RECORDS SUMMARY | ~2018-05-31 | XMS | Clinical Summary ---
Demographics + + + | Address | [address] | | | [place] [address] | + + + | Home Phone [...] [place], | | | | | [place] [address] | | + + + + + Care Team Providers + +------+ + | Care Union Carpenter Name | Role | Phone | + +------+ + | Thalia Georges MD | PP | | + +------+ + Source Comments [facility] is fully live on both [facility] and [facility] InPatient.[facility] Allergies + + + + + [...] CHW CARE PLANIdentified Problems/Needs: Pt referred by [facility] for transportation | | assistance. Action Items: [...] of | | vouchers and tickets at [facility] for pt to pick up operator when he returns from his trip in 2 | | weeks. 09/13/16 Left to see if pt was able to pick up operator vouchers and Link tickets to | [...] in | | | | | | [place] ) | +--------+ + + + + | 05/07/ | Refill | | Thalia Georges | Refill Request | | 2017 | | | MD Fabien | | +--------+ + + + + | 05/06/ | Document-Sc | | Glory Wang, | | | 2017 | anned | | | | +--------+ + + + + 05/05/ | Telephone | | Thalia Georges | Referral To Rehab | | 2017 | | | MD Fabien | Medicine | +--------+ + + + + 05/05/ | Telephone | | Glory Wang, | Other (port flu) | | 2017 [...] | | | | | layer exposed ([facility]); | | | | | | Need for | | | | | | vzlhuhljwr-iilowot-r | | | | | | ertussis [...] | 03/12/ | Hospital | | Glory Wang, | | | 2017 | Encounter | [...] | | | | | | [place] [address] | | | | | | [phone] | | | | | | | | +--------+---------+ + + + | 09/30/ | Office | | Glory Wang, | | | 2017 | Visit | | MD [address] | | | | | | [facility] [place] | | | | | | [address] | | | | | | [phone] | | | | | | | | +--------+---------+ + + + + + + + + | Health Maintenance | Due Date | Last Done | Comments | + + + + + | DIABETIC EYE EXAM | | | | | | 7 | | | + + + + + | Hepatitis B | | | | | Vaccination (1 of 3 | 6 | | | | - Risk 3-dose | | | | | series) | | | | + + + [...] Narrative | + + | [address] | | [place] [address] | | [phone] Name: | | WYATT COLEY Phys: ANTHONY WANGWILLIAM Chris : 1965 Sex: | | M CSN: [id number] MR# [id number] Exam Date: | | 03/12/2018 EXAM: CT [...] MD Transcribed Date/Time: 03/12/2018 21:39 | | Cell Cleaner: CORAZON | + + + + | Procedure Note | + + | Interface, Radiology Results - 03/12/2018 9:43 PM PDT [address] | | [address] [place] [address] | | Name: WYATT COLEY Phys: GLORY WANG : 1965 Sex: M CSN: | | [id number] MR# [id number] Exam Date: 03/12/2018 EXAM:CT CHEST WITH CONTRAST | | CLINICAL HISTORY:Follow-up colon cancer with lung metastases, status post resection | | [id number]. COMPARISON:Chest CT 01/25/2017. TECHNIQUE:Axial CT images were [...] | | |Transcribed Date/Time: 03/12/2018 21:39 | |Cell Cleaner: FLUENCY | | | | | | [...] | ------ CBC AND AUTO | | DIFF[[id number]] Abnormal Final | | result Please view [...] | + + + | Blood | [facility] | | | [place] [address] | + + + CARCINOEMBRYONIC AG, SERUM (03/12/2018 10:33 AM) + +-------+ + | Component | Value | Ref Range | + +-------+ + | CEA-CARCINOEMBRYONIC | 2.4 | ng/mL | | AG, SERUM | | | + +-------+ + + + + | Specimen | Performing Laboratory | + + + | Blood | [address] [facility] | | | [place] [address] | + + + + + | [...] | >60 | >60 mL/min | | IVORIAN | | | + +---------+ + | EGFR NON | >60 | >60 mL/min | | -IVORIAN | | | + +---------+ + | [...] | + + + | Blood | [address] | | | [place] [address] | + + + + + | [...] | MOD[employer] | [id number] | PPO | [phone]--- | [address] | | | MEDICA | | | [phone] | [place] [address] | | | RE PPO | | [...] | 07/[birth year]/ | Home: | [address] | | | al/Fam | | 1965 | [phone] | [place] [address] | | | rell | | | [address] | | + +--------+ +--------+ + +
--- OUTSIDE RECORDS SUMMARY | ~2018-05-31 | XMS | Encounter Summary ---
Demographics + + + | Address | [address] | | | [place] [address] | + + + | Home Phone | | + + + | Preferred Language | Unknown | + + + | Marital Status | Single | + + + | Muslim Affiliation | CHR | + + + | Race | White | + + + | Ethnic Group | Not or | + + + Author + + + | Author | [facility] | + + + | Organization | [facility] | + + + [...] [place], | | | | | [place] [address] | | + + + + + Care Team Providers + +------+ + | Care Logistics Engineering Manager Name | Role | Phone | [...] | [address] | [place] [address] | | | | | [place], [place] | [phone] | | | | | [address] | | | | | | [phone] | | | +--------+ + + + [...] | | | | | | [place] [address] | | | | | | [phone] | | | | | | | | +--------+---------+ + + + | 09/30/ | Office | Hematology & | Vonda Wang | | | 2017 | Visit | Oncology | [address] | | | | | | [place] | | | | | | [address] | | | | | | [phone] | | | | | | | | +--------+---------+ + + + as of this encounter Visit Diagnoses Not on filein this encounter"
--- OUTSIDE RECORDS SUMMARY | ~2018-05-31 | XMS | Encounter Summary ---
Demographics + + + | Address | [address] | | | [place] [address] | + + + | Home Phone | | + + + | Preferred Language | Unknown | + + + | Marital Status | Single | + + + | Confucianist Affiliation | CHR | + + + | Race | White | + + + | Ethnic Group | Not or | + + + Author + + + | Author | [facility] | + + + | Organization | [facility] | + [...] [place], | | | | | [place] [address] | | + + + + + Care Team Providers + +------+ + | Care Mandrel Press Hand Name | Role | Phone | + [...] | [address] | [place] [address] | | | | | [place], [place] | [phone] | | | | | [address] | | | | | | [phone] | | | +--------+--------+ + + + [...] | | | | | | [place] [address] | | | | | | [phone] | | | | | | | | +--------+---------+ + + + | 09/30/ | Office | Hematology & | Vonda Wang, | | | 2017 | Visit | Oncology | [address] | | | | | | [place] | | | | | | [address] | | | | | | [phone] | | | | | | | | +--------+---------+ + + + as of this encounter Visit Diagnoses Not on filein this encounter"
--- OUTSIDE RECORDS SUMMARY | ~2018-05-31 | XMS | Encounter Summary ---
Demographics + + + | Address | [address] | | | [place] [address] | + + + | Home Phone | | + + + | Preferred Language | Unknown | + + + | Marital Status | Single | + + + | Temple Affiliation | CHR | + + + | Race | White | + + + | Ethnic Group | Not or | + + + Author + + + | Author | [facility] | + + + | Organization | [facility] | + + + | Address [...] [place], | | | | | [place] [address] | | + + + + + Care Team Providers + +------+ + | Care Shotgun Shell Reprinting Unit Operator Name | Role | Phone | [...] | [address] | [place] [address] | | | | | [place], [place] | [phone] | | | | | [address] | | | | | | [phone] | | | +--------+ + + + [...] | | | | | | [place] [address] | | | | | | [phone] | | | | | | | | +--------+---------+ + + + | 09/30/ | Office | Hematology & | Vonda Wang | | | 2017 | Visit | Oncology | [address] | | | | | | [place] | | | | | | [address] | | | | | | [phone] | | | | | | | | +--------+---------+ + + + as of this encounter Visit Diagnoses Not on filein this encounter"
--- OUTSIDE RECORDS SUMMARY | ~2018-05-31 | XMS | Encounter Summary ---
Demographics + + + | Address | [address] | | | [place] [address] | + + + | Home Phone | | + + + | Preferred Language | Unknown | + + + | Marital Status | Single | + + + | Restorationism Affiliation | CHR | + + + [...] [place], | | | | | [place] [address] | | + + + + + Care Team Providers + +------+ + | Care Grain Elevator Man Name | Role | Phone | + +------+ + | Thalia Georges MD | PCP | | + +------+ + Encounter Details +--------+ + + + + | Date | Type | Department | Care Team | Description | +--------+ + + + + | 03/25/ | Document-Sc | Sleep Medicine at | Baudilio Zepeda, | | | 2018 | anned | [facility] [address] | | | | | [address] [place] [facility] | [facility] [place] | | | | | [place] | [address] | | | | | [address] | [phone] | | | | | [phone] | | | +--------+ + + + [...] | | | | | | [place] [address] | | | | | | [phone] | | | | | | | | +--------+---------+ + + + | 09/30/ | Office | Hematology & | Vonda Wang, | | | 2017 | Visit | Oncology | [address] | | | | | | [place] | | | | | | [address] | | | | | | [phone] | | | | | | | | +--------+---------+ + + + as of this encounter Visit Diagnoses Not on filein this encounter"
--- OUTSIDE RECORDS SUMMARY | ~2018-05-31 | XMS | Encounter Summary ---
Demographics + + + | Address | [address] | | | [place] [address] | + + + | Home Phone | | + + + | Preferred Language | Unknown | + + + | Marital Status | Single | + + + | Zoroastrianism Affiliation | CHR | + + + [...] [place], | | | | | [place] [address] | | + + + + + Care Team Providers + +------+ + | Care Home Organizer Name | Role | Phone | + [...] | | | | stage [place] | [address] | | | | | | Left upper | Phone: | | | | | | quadrant | [phone] | | | | | | pain | Fax: | | | | | | Procedures | [phone] | | | | | | CT [...] Office | [facility] | Sherrie Cook, PRESS MACHINE FEEDER | Personal history of | | 2018 | Visit | Center - Medical | [address] | colon cancer, stage | | | | Oncology [address] | [place] [address] | IV (Primary Dx); | | | | Street The | [phone] | Left upper quadrant | | | | [place] | | pain | | | | [address] | | | | | | [phone] | | | +--------+---------+ + + + [...] 7 - 51 U/L Final EGFR - SAMOAN 03/12/2018 >60 >60 mL/min Final EGFR NON -SAMOAN 03/12/2018 >60 >60 mL/min Final ANION GAP [...] Reactions Penicillins Hives Medications history reviewed. A sql server dba developer was offered to the patient and they [...] | | | | | | [place] [address] | | | | | | [phone] | | | | | | | | +--------+---------+ + + + | 09/30/ | Office | Hematology & | Vonda Wang | | | 2017 | Visit | Oncology | [address] | | | | | | [place] | | | | | | [address] | | | | | | [phone] | | | | | | | [...]
--- OUTSIDE RECORDS SUMMARY | ~2018-05-31 | XMS | Encounter Summary ---
Demographics + + + | Address | [address] | | | [place] [address] | + + + | Home Phone | | + + + | Preferred Language | Unknown | + + + | Marital Status | Single | + + + | Quaker Affiliation | CHR | + + + [...] [place], | | | | | [place] [address] | | + + + + + Care Team Providers + +------+ + | Care Data Management Name | Role | Phone | + [...] | [address] | [place] [address] | | | | | [place], [place] | [phone] | | | | | [address] | | | | | | [phone] | | | +--------+--------+ + + + [...] | | | | | | [place] [address] | | | | | | [phone] | | | | | | | | +--------+---------+ + + + | 09/30/ | Office | Hematology & | Vonda Wang, | | | 2017 | Visit | Oncology | [address] | | | | | | [place] | | | | | | [address] | | | | | | [phone] | | | | | | | | +--------+---------+ + + + as of this encounter Visit Diagnoses Not on filein this encounter"
--- OUTSIDE RECORDS SUMMARY | ~2018-05-31 | XMS | Encounter Summary ---
Demographics + + + | Address | [address] | | | [place] [address] | + + + | Home Phone [...] Author + + + | Author | [facility] | + + + | Organization | [facility] | + + + | [...] [place], | | | | | [place] [address] | | + + + + + Care Team Providers + +------+ + | Care Rn Family Practice Name | Role | Phone | + +------+ + | Thalia Georges MD | PCP | | + +------+ + Encounter Details +--------+ + + + + | Date | Type | Department | Care Team | Description | +--------+ + + + + | 09/16/ | Procedure | Diagnostic Imaging | | | | 2016 | Pass | at [facility] | | | | | | [address] [place] [address] | | | | | | [place] | | | | | | [address] | | | +--------+ + + + [...] | | | | | | [place] [address] | | | | | | [phone] | | | | | | | | +--------+---------+ + + + | 09/30/ | Office | Hematology & | Vonda Wang, | | | 2017 | Visit | Oncology | [address] | | | | | | [place] | | | | | | [address] | | | | | | [phone] | | | | | | | | +--------+---------+ + + + as of this encounter Visit Diagnoses Not on filein this encounter"
--- OUTSIDE RECORDS SUMMARY | ~2018-05-31 | XMS | Encounter Summary ---
Demographics + + + | Address | [address] | | | [place] [address] | + + + | Home Phone [...] Author + + + | Author | [facility] | + + + | Organization | [facility] | + + + [...] [place], | | | | | [place] [address] | | + + + + + Care Team Providers + +------+ + | Care Data Software Engineer Name | Role | Phone | [...] [place], | | | | | [address] | [place] [address] | | | | | [place], [place] | [phone] | | | | | [address] | | | | | | [phone] | | | +--------+--------+ + + + [...] | | | | | | [place] [address] | | | | | | [phone] | | | | | | | | +--------+---------+ + + + | 09/30/ | Office | Hematology & | Vonda Wang | | | 2017 | Visit | Oncology | [address] | | | | | | [place] | | | | | | [address] | | | | | | [phone] | | | | | | | | +--------+---------+ + + + as of this encounter Visit Diagnoses Not on filein this encounter"
--- OUTSIDE RECORDS SUMMARY | ~2018-05-31 | XMS | Encounter Summary ---
Demographics + + + | Address | [address] | | | [place] [address] | + + + | Home Phone | | + + + | Preferred Language | Unknown | + + + | Marital Status | Single | + + + | Catholic Affiliation | CHR | + + + | Race | White | + + + | Ethnic Group | Not or | + + + Author + + + | Author | [facility] | + + + | Organization | [facility] | + + + | [...] [place], | | | | | [place] [address] | | + + + + + Care Team Providers + +------+ + | Care Bench Chemist Name | Role | Phone | + [...] | | | | [place] | [address] | | | | | | Left upper | Phone: | | | | | | quadrant | [phone] | | | | | | pain | Fax: | | | | | | Procedures | [phone] | | | | | | CT [...] Office | [facility] | Sherrie Cook, MUSIC CRITIC | Personal history of | | 2018 | Visit | Center - Medical | [address] | colon cancer, stage | | | | Oncology [address] | [place] [address] | IV (Primary Dx); | | | | Street The | [phone] | Left upper quadrant | | | | [place] | | pain | | | | [address] | | | | | | [phone] | | | +--------+---------+ + + + [...] 7 - 51 U/L Final EGFR - MALAGASY 03/12/2018 >60 >60 mL/min Final EGFR NON -MALAGASY 03/12/2018 >60 >60 mL/min Final ANION GAP [...] Reactions Penicillins Hives Medications history reviewed. A urology physician was offered to the patient and they [...] | | | | | | [place] [address] | | | | | | [phone] | | | | | | | | +--------+---------+ + + + | 09/30/ | Office | Hematology & | Vonda Wang | | | 2017 | Visit | Oncology | [address] | | | | | | [place] | | | | | | [address] | | | | | | [phone] | | | | | | | [...]
--- OUTSIDE RECORDS SUMMARY | ~2018-05-31 | XMS | Encounter Summary ---
Demographics + + + | Address | [address] | | | [place] [address] | + + + | Home Phone | | + + + | Preferred Language | Unknown | + + + | Marital Status | Single | + + + | Jain Affiliation | CHR | + + + [...] [place], | | | | | [place] [address] | | + + + + + Care Team Providers + +------+ + | Care Guest Service Supervisor Name | Role | Phone | + [...] | | | | | | [place] [address] | | | | | | [phone] | | | +--------+ + + + [...] Reactions Penicillins Hives Medications history reviewed. A engineering mgr was offered to the patient and they [...] | | | | | | [place] [address] | | | | | | [phone] | | | | | | | | +--------+---------+ + + + | 09/30/ | Office | Hematology & | Vonda Wang, | | | 2017 | Visit | Oncology | [address] | | | | | | [place] | | | | | | [address] | | | | | | [phone] | | | | | | | | +--------+---------+ + + + as of this encounter Visit Diagnoses + + | Diagnosis | + + | Personal history of colon cancer, stage IV - Primary | + + | Personal history of malignant neoplasm of large intestine | + +
--- OUTSIDE RECORDS SUMMARY | ~2018-05-31 | XMS | Encounter Summary ---
Demographics + + + | Address | [address] | | | [place] [address] | + + + | Home Phone | | + + + | Preferred Language | Unknown | + + + | Marital Status | Single | + + + | Confucianism Affiliation | CHR | + + + | Race | White | + + + | Ethnic Group | Not or | + + + Author + + + | Author | [facility] | + + + | Organization | [facility] | + + + | [...] [place], | | | | | [place] [address] | | + + + + + Care Team Providers + +------+ + | Care Rubber Stamp Dies Inspector Name | Role | Phone | + [...] 2018 | | Medical Clinic | [address] | | | | | Internal Medicine | [place], [place] | | | | | [address] | [address] | | | | | [place], [place] | [phone] | | | | | [address] | | | | | | [phone] | | | +--------+--------+ + + + [...] | | | | | | [place] [address] | | | | | | [phone] | | | | | | | | +--------+---------+ + + + | 09/30/ | Office | Hematology & | Vonda Wang, | | | 2017 | Visit | Oncology | [address] | | | | | | [place] | | | | | | [address] | | | | | | [phone] | | | | | | | | +--------+---------+ + + + as of this encounter Visit Diagnoses Not on filein this encounter"
--- OUTSIDE RECORDS SUMMARY | ~2018-05-31 | XMS | Encounter Summary ---
Demographics + + + | Address | [address] | | | [place] [address] | + + + | Home Phone [...] [place], | | | | | [place] [address] | | + + + + + Care Team Providers + +------+ + | Care Student Success Coach Name | Role | Phone | + [...] | | | | | mellitus | [address] | [address] | | | | | without | [place], | [place], | | | | | complication | [place] | [place] [address] | | | | | , without | [address] | Phone: | | | | | long-term | Phone: | [phone] | | | | | current use | [phone] | Fax: | | | | | of insulin | Fax: | [phone] | | | | | ([facility]) | [phone] | | | | | | Procedures [...] + + | 04/08/ | Office | [facility] | Thalia Georges | Alcohol dependence, | | 2018 | Visit | Medical Clinic | MD Fabien [address] | episodic drinking | | | | Internal Medicine | [address] [place], | behavior ([facility]) | | | | [address] | [place] [address] | (Primary Dx); Type 2 | | | | [place], [place] | [phone] | diabetes mellitus | | | | [address] | | ([facility]); Skin ulcer of | | | | [phone] | | upper arm with fat | | | | | | layer exposed ([facility]); | | | | | | Need for | | | | | | zunefpuhho-rjzauyz-j | | | | | | ertussis [...] [facility]. 4) A referral to diabetes [facility] has been submitted. This will be reviewed by our [facility] and forwarded to the appropriate [...] He still uses marijuana. He has contacted [facility], and has some paperwork to fi [...] He mentioned this to Sherrie Cook at [facility] the , and a CT scan has [...] at self care, with some contacts for [facility]. - Continue to support abstinence and [...] TO GIVE: TDAP (BOOSTRIX) 4. Need for beekgeuyxg-vtfxibv-pyfddhonr (Tdap) vaccine - STAFF TO GIVE: TDAP (BOOSTRIX) Return in about 3 months (around 07/09/2018). Anamaria Schneider MA - 04/08/2018 3:00 PM PDTFormatting of this note may be different from t jayleen original. Chief Complaint Patient presents with Follow-up visit CC. Medications refill, insomnia & Abd pain [employer] Identity Management Consultant Offered to Patient: N/A Health Maintenance Due Topic DIABETIC EYE EXAM DIPHTHERIA,TETANUS,and PERTUSSIS (DTaP/Tdap/Td) (1 - Tdap) MONOFILAMENT FOOT EXAM 1. Is the patient sick today? no 2. Do you have allergies to medications, food, a vaccine component or latex? no 3. Has the patient ever had a serious reaction to any vaccine in the past? no 4. Do you have usp health problem with heart disease, lung disease, [...] | | | | | | [place] [address] | | | | | | [phone] | | | | | | | | +--------+---------+ + + + | 09/30/ | Office | Hematology & | Vonda Wang, | | | 2017 | Visit | Oncology | [address] | | | | | | [place] | | | | | | [address] | | | | | | [phone] | | | | | | | [...] (HCC) | + + | Need for xwpxhbsult-axgmrpo-fiqwlpskm (Tdap) vaccine | + + | Need for prophylactic vaccination with combined wnadcyekgb-aireiml-lefnoekys (DTP) | | vaccine | + +
--- OUTSIDE RECORDS SUMMARY | ~2018-05-31 | XMS | Encounter Summary ---
Demographics + + + | Address | [address] | | | [place] [address] | + + + | Home Phone | | + + + | Preferred Language | Unknown | + + + | Marital Status | Single | + + + | Anabaptism Affiliation | CHR | + + + [...] [place], | | | | | [place] [address] | | + + + + + Care Team Providers + +------+ + | Care Senior Coldfusion Developer Name | Role | Phone | + [...] | | | [address] | [address] [place] | | | | | [place] | [address] | | | | | [address] | [phone] | | | | | [phone] | | | +--------+ + + + [...] | | | | | | [place] [address] | | | | | | [phone] | | | | | | | | +--------+---------+ + + + | 09/30/ | Office | Hematology & | Vonda Wang, | | | 2017 | Visit | Oncology | [address] | | | | | | [place] | | | | | | [address] | | | | | | [phone] | | | | | | | | +--------+---------+ + + + as of this encounter Visit Diagnoses Not on filein this encounter"
--- OUTSIDE RECORDS SUMMARY | ~2018-05-31 | XMS | Encounter Summary ---
Demographics + + + | Address | [address] | | | [place] [address] | + + + | Home Phone | | + + + | Preferred Language | Unknown | + + + | Marital Status | Single | + + + | Methodist Affiliation | CHR | + + + [...] [place], | | | | | [place] [address] | | + + + + + Care Team Providers + +------+ + | Care Parent Trainer Name | Role | Phone | + +------+ + | Thalia Georges MD | PCP | | + +------+ + Reason for Visit + + + | Reason | Comments | + + + | Care Management | orders for [facility] care facility in [place] | + + + Encounter Details +--------+ + + + + | Date | Type | Department | Care Team | Description | +--------+ + + + + | 05/13/ | Telephone | [facility] | Thalia Georges | Care Management | | 2018 | | Medical Clinic | MD Fabien [address] | (orders for ETOH | | | | Internal Medicine | Blvd [place], | care facility in | | | | [address] | [place] [address] | [place] ) | | | | [place], [place] | [phone] | | | | | [address] | | | | | | [phone] | | | +--------+ + + + [...] | | | | | | [place] [address] | | | | | | [phone] | | | | | | | | +--------+---------+ + + + | 09/30/ | Office | Hematology & | Vonda Wang, | | | 2017 | Visit | Oncology | [address] | | | | | | [place] | | | | | | [address] | | | | | | [phone] | | | | | | | | +--------+---------+ + + + as of this encounter Visit Diagnoses + + | Diagnosis | + + | Type 2 diabetes mellitus (HCC) - Primary | + +"
--- OUTSIDE RECORDS SUMMARY | ~2018-05-31 | XMS | Encounter Summary ---
Demographics + + + | Address | [address] | | | [place] [address] | + + + | Home Phone | | + + + | Preferred Language | Unknown | + + + | Marital Status | Single | + + + | Rastafari Affiliation | CHR | + + + [...] [place], | | | | | [place] [address] | | + + + + + Care Team Providers + +------+ + | Care Washroom Operator Name | Role | Phone | [...] [place], | | | | | [address] | [place] [address] | | | | | [place], [place] | [phone] | | | | | [address] | | | | | | [phone] | | | +--------+--------+ + + + [...] | | | | | | [place] [address] | | | | | | [phone] | | | | | | | | +--------+---------+ + + + | 09/30/ | Office | Hematology & | Vonda Wang | | | 2017 | Visit | Oncology | [address] | | | | | | [place] | | | | | | [address] | | | | | | [phone] | | | | | | | | +--------+---------+ + + + as of this encounter Visit Diagnoses Not on filein this encounter"
--- OUTSIDE RECORDS SUMMARY | ~2018-05-31 | XMS | Encounter Summary ---
Demographics + + + | Address | [address] | | | [place] [address] | + + + | Home Phone | | + + + | Preferred Language | Unknown | + + + | Marital Status | Single | + + + | Latter-Day Affiliation | CHR | + + + [...] [place], | | | | | [place] [address] | | + + + + + Care Team Providers + +------+ + | Care County Historian Name | Role | Phone | + [...] | | | | Street The | [address] | | | | | [place], [place] | [phone] | | | | | [address] | | | | | | [phone] | | | +--------+ + + + [...] | | | | | | [place] [address] | | | | | | [phone] | | | | | | | | +--------+---------+ + + + | 09/30/ | Office | Hematology & | Vonda Wang, | | | 2017 | Visit | Oncology | [address] | | | | | | [place] | | | | | | [address] | | | | | | [phone] | | | | | | | | +--------+---------+ + + + as of this encounter Visit Diagnoses Not on filein this encounter"
--- OUTSIDE RECORDS SUMMARY | ~2018-05-31 | XMS | Encounter Summary ---
Demographics + + + | Address | [address] | | | [place] [address] | + + + | Home Phone [...] Author + + + | Author | [facility] | + + + | Organization | [facility] | + + + | Address [...] [place], | | | | | [place] [address] | | + + + + + Care Team Providers + +------+ + | Care Director Of Strategic Sales Name | Role | Phone | + [...] | [address] | [place] [address] | | | | | [place], [place] | [phone] | | | | | [address] | | | | | | [phone] | | | +--------+ + + + [...] | | | | | | [place] [address] | | | | | | [phone] | | | | | | | | +--------+---------+ + + + | 09/30/ | Office | Hematology & | Vonda Wang, | | | 2017 | Visit | Oncology | [address] | | | | | | [place] | | | | | | [address] | | | | | | [phone] | | | | | | | | +--------+---------+ + + + as of this encounter Visit Diagnoses Not on filein this encounter"
--- OUTSIDE RECORDS SUMMARY | ~2018-05-31 | XMS | Encounter Summary ---
Demographics + + + | Address | [address] | | | [place] [address] | + + + | Home Phone [...] + + + | Author | [facility] | + + + | Organization | [facility] | + + [...] [place], | | | | | [place] [address] | | + + + + + Care Team Providers + +------+ + | Care Senior Support Analyst Name | Role | Phone | [...] | | | | | | [place] [address] | | | | | | [phone] | | | +--------+ + + + [...] Reactions Penicillins Hives Medications history reviewed. A director mission was offered to the patient and they [...] | | | | | | [place] [address] | | | | | | [phone] | | | | | | | | +--------+---------+ + + + | 09/30/ | Office | Hematology & | Vonda Wang, | | | 2017 | Visit | Oncology | [address] | | | | | | [place] | | | | | | [address] | | | | | | [phone] | | | | | | | | +--------+---------+ + + + as of this encounter Visit Diagnoses + + | Diagnosis | + + | Personal history of colon cancer, stage IV - Primary | + + | Personal history of malignant neoplasm of large intestine | + +
--- OUTSIDE RECORDS SUMMARY | ~2018-05-31 | XMS | Encounter Summary ---
Demographics + + + | Address | [address] | | | [place] [address] | + + + | Home Phone | | + + + | Preferred Language | Unknown | + + + | Marital Status | Single | + + + | Denominational Affiliation | CHR | + + + | Race | White | + + + | Ethnic Group | Not or | + + + Author + + + | Author | [facility] | + + + | Organization | [facility] | + + + | [...] [place], | | | | | [place] [address] | | + + + + + Care Team Providers + +------+ + | Care Landscape Artist Name | Role | Phone | + [...] 2018 | | Medical Clinic | [address] | | | | | Internal Medicine | [place], [place] | | | | | [address] | [address] | | | | | [place], [place] | [phone] | | | | | [address] | | | | | | [phone] | | | +--------+--------+ + + + [...] | | | | | | [place] [address] | | | | | | [phone] | | | | | | | | +--------+---------+ + + + | 09/30/ | Office | Hematology & | Vonda Wang, | | | 2017 | Visit | Oncology | [address] | | | | | | [place] | | | | | | [address] | | | | | | [phone] | | | | | | | | +--------+---------+ + + + as of this encounter Visit Diagnoses Not on filein this encounter"
--- OUTSIDE RECORDS SUMMARY | ~2018-05-31 | XMS | Clinical Summary ---
Demographics + + + | Address | [address] | | | [place] [address] | + + + | Home Phone | | + + + | Preferred Language | Unknown | + + + | Marital Status | Single | + + + | Church Affiliation | CHR | + + + [...] [place], | | | | | [place] [address] | | + + + + + Care Team Providers + +------+ + | Care Research Professor Name | Role | Phone | + +------+ + | Thalia Georges MD | PP | | + +------+ + Source Comments VERNON is fully live on both [facility] Ambulatory and [facility] InPatient.[facility] Allergies + + + + [...] CHW CARE PLANIdentified Problems/Needs: Pt referred by [facility] for transportation | | assistance. 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 09/13/16 Left to see if pt was able to picking crew supervisor vouchers and Link tickets to | | [...] in | | | | | | [place] ) | +--------+ + + + + [...] | | | | | layer exposed ([facility]); | | | | | | Need for | | | | | | rpoanrcyjy-wxyqeyj-o | | | | | | ertussis [...] | 03/25/ | Document-Sc | | Baudilio Zepdea, | | | 2017 | anned | [...] | | | | | | [place] [address] | | | | | | [phone] | | | | | | | | +--------+---------+ + + + | 09/30/ | Office | | Glory Wang, | | | 2017 | Visit | | MD [address] | | | | | | [facility] [place] | | | | | | [address] | | | | | | [phone] | | | | | | | [...] Narrative | + + | [address] | | [place] [address] | | [phone] Name: | | WYATT COLEY Phys: ANTHONY WANGWILLIAM Chris : 1965 Sex: | | M CSN: [id number] MR# [id number] Exam Date: | | 03/12/2018 EXAM: CT [...] OTHER VENDOR SYSTEM 03/12/2018 Reported by: SELVIN CMUMINGS MD Electronically | | signed by: SELVIN CUMMINGS MD Transcribed Date/Time: 03/12/2018 21:39 | | Fruit Grading Supervisor: CORAZON | + + + + | Procedure Note | + + | Interface, Radiology Results - 03/12/2018 9:43 PM PDT [address] | | [address] [place] [address] | | Name: WYATT COLEY Phys: GLORY WANG : 1965 Sex: M CSN: | | [id number] MR# [id number] Exam Date: 03/12/2018 EXAM:CT CHEST WITH CONTRAST | | CLINICAL HISTORY:Follow-up colon cancer with lung metastases, status post resection | | [id number]. COMPARISON:Chest CT 01/25/2017. TECHNIQUE:Axial CT images were [...] | | |Transcribed Date/Time: 03/12/2018 21:39 | |Fruit Grading Supervisor: FLUENCY | | | | | | [...] | ------ CBC AND AUTO | | DIFF[[id number]] Abnormal Final | | result Please view [...] | + + + | Blood | [facility] | | | [place] [address] | + + + CARCINOEMBRYONIC AG, SERUM (03/12/2018 10:33 AM) + +-------+ + | Component | Value | Ref Range | + +-------+ + | CEA-CARCINOEMBRYONIC | 2.4 | ng/mL | | AG, SERUM | | | + +-------+ + + + + | Specimen | Performing Laboratory | + + + | Blood | [address] [facility] | | | [place] [address] | + + + + + | [...] | >60 | >60 mL/min | | [place] | | | + +---------+ + | EGFR NON | >60 | >60 mL/min | | -[place] | | | + +---------+ + | [...] | + + + | Blood | [address] | | | [place] [address] | + + + + + | [...] | [employer] | | | [address] | [place] [address] | | | RE PPO | | [...] | [birth year]/ | Home: | [address] | | | al/Fam | | 1965 | [phone] | [place] [address] | | | rell | | | [address] | | + +--------+ +--------+ + +
--- OUTSIDE RECORDS SUMMARY | ~2018-05-31 | XMS | Encounter Summary ---
Demographics + + + | Address | [address] | | | [place] [address] | + + + | Home Phone [...] + + | Author | [facility] | + + + | Organization | [facility] | + + + [...] [place], | | | | | [place] [address] | | + + + + + Care Team Providers + +------+ + | Care Bankruptcy Legal Assistant Name | Role | Phone | + [...] | | | | Street [address] | [address] | | | | | [place], [place] | [phone] | | | | | [address] | | | | | | [phone] | | | +--------+ + + + [...] | | | | | | [place] [address] | | | | | | [phone] | | | | | | | | +--------+---------+ + + + | 09/30/ | Office | Hematology & | Vonda Wang, | | | 2017 | Visit | Oncology | [address] | | | | | | [place] | | | | | | [address] | | | | | | [phone] | | | | | | | | +--------+---------+ + + + as of this encounter Visit Diagnoses Not on filein this encounter"
--- OUTSIDE RECORDS SUMMARY | ~2018-05-31 | XMS | Encounter Summary ---
Demographics + + + | Address | [address] | | | [place] [address] | + + + | Home Phone | | + + + | Preferred Language | Unknown | + + + | Marital Status | Single | + + + | Roman Catholic Affiliation | CHR | + + [...] [place], | | | | | [place] [address] | | + + + + + Care Team Providers + +------+ + | Care Radiography Technician Name | Role | Phone | + +------+ + | Thalia Georges MD | PCP | | + +------+ + Reason for Visit + + + | Reason | Comments | + + + | Care Management | orders for [facility] care facility in [place] | + + + Encounter Details +--------+ [...] | | [address] | [place] [address] | [place] ) | | | | [place], [place] | [phone] | | | | | [address] | | | | | | [phone] | | | +--------+ + + + [...] | | | | | | [place] [address] | | | | | | [phone] | | | | | | | | +--------+---------+ + + + | 09/30/ | Office | Hematology & | Vonda Wang, | | | 2017 | Visit | Oncology | [address] | | | | | | [place] | | | | | | [address] | | | | | | [phone] | | | | | | | | +--------+---------+ + + + as of this encounter Visit Diagnoses + + | Diagnosis | + + | Type 2 diabetes mellitus (HCC) - Primary | + +"
--- OUTSIDE RECORDS SUMMARY | ~2018-05-31 | XMS | Encounter Summary ---
Demographics + + + | Address | [address] | | | [place] [address] | + + + | Home Phone [...] [place], | | | | | [place] [address] | | + + + + + Care Team Providers + +------+ + | Care Plant Security Guard Name | Role | Phone | + +------+ + | Thalia Georges MD | PCP | | + +------+ + Encounter Details +--------+ + + + + | Date | Type | Department | Care Team | Description | +--------+ + + + + | 04/22/ | Document-Sc | [facility] | Thalia Georges | | | 2018 | [place] | [facility] | MD Pietro Conn | | | | | Internal Medicine | [place], | | | | | [address] | [place] [address] | | | | | [place] | [phone] | | | | | [address] | | | | | | [phone] | | | +--------+ + + + [...] | | | | | | [place] [address] | | | | | | [phone] | | | | | | | | +--------+---------+ + + + | 09/30/ | Office | Hematology & | Vonda Wang, | | | 2017 | Visit | Oncology | [address] | | | | | | [place] | | | | | | [address] | | | | | | [phone] | | | | | | | | +--------+---------+ + + + as of this encounter Visit Diagnoses Not on filein this encounter"
--- OUTSIDE RECORDS SUMMARY | ~2018-05-31 | XMS | Encounter Summary ---
Demographics + + + | Address | [address] | | | [place] [address] | + + + | Home Phone [...] Author + + + | Author | [facility] | + + + | Organization | [facility] | + + + [...] [place], | | | | | [place] [address] | | + + + + + Care Team Providers + +------+ + | Care It Operations Manager Name | Role | Phone | [...] [place] | | | | | [place] [address] | [address] | | | | | [phone] | | | +--------+ + + + [...] | | | | | | [place] [address] | | | | | | [phone] | | | | | | | | +--------+---------+ + + + | 09/30/ | Office | Hematology & | Vonda Wang, | | | 2017 | Visit | Oncology | [address] | | | | | | [place] | | | | | | [address] | | | | | | [phone] | | | | | | | | +--------+---------+ + + + as of this encounter Visit Diagnoses Not on filein this encounter"
--- OUTSIDE RECORDS SUMMARY | ~2018-05-31 | XMS | Encounter Summary ---
Demographics + + + | Address | [address] | | | [place] [address] | + + + | Home Phone [...] [place], | | | | | [place] [address] | | + + + + + Care Team Providers + +------+ + | Care Unit Assembler Name | Role | Phone | + [...] [place] | | | | | | [address] | | | | | | [phone] | | | +--------+------+ + + + [...] | | | | | | [place] [address] | | | | | | [phone] | | | | | | | | +--------+---------+ + + + | 09/30/ | Office | Hematology & | Vonda Wang, | | | 2017 | Visit | Oncology | [address] | | | | | | [place] | | | | | | [address] | | | | | | [phone] | | | | | | | | +--------+---------+ + + + as of this encounter Visit Diagnoses Not on filein this encounter"
--- OUTSIDE RECORDS SUMMARY | ~2018-05-31 | XMS | Encounter Summary ---
Demographics + + + | Address | [address] | | | [place] [address] | + + + | Home Phone [...] [place], | | | | | [place] [address] | | + + + + + Care Team Providers + +------+ + | Care Observer Gravity Prospecting Name | Role | Phone | + +------+ + | hTalia Georges MD | PCP | | + [...] | [address] | [place] [address] | | | | | [place], [place] | [phone] | | | | | [address] | | | | | | [phone] | | | +--------+--------+ + + + [...] | | | | | | [place] [address] | | | | | | [phone] | | | | | | | | +--------+---------+ + + + | 09/30/ | Office | Hematology & | Vonda Wang, | | | 2017 | Visit | Oncology | [address] | | | | | | [place] | | | | | | [address] | | | | | | [phone] | | | | | | | | +--------+---------+ + + + as of this encounter Visit Diagnoses Not on filein this encounter"
--- OUTSIDE RECORDS SUMMARY | ~2018-05-31 | XMS | Encounter Summary ---
Demographics + + + | Address | [address] | | | [place] [address] | + + + | Home Phone | | + + + | Preferred Language | Unknown | + + + | Marital Status | Single | + + + | Christian Affiliation | CHR | + + + [...] [place], | | | | | [place] [address] | | + + + + + Care Team Providers + +------+ + | Care Slp Teacher Name | Role | Phone | + [...] | | | | Street The | [address] | | | | | [place] | [phone] | | | | | [address] | | | | | | [phone] | | | +--------+ + + + [...] | | | | | | [place] [address] | | | | | | [phone] | | | | | | | | +--------+---------+ + + + | 09/30/ | Office | Hematology & | Vonda Wang, | | | 2017 | Visit | Oncology | [address] | | | | | | [place] | | | | | | [address] | | | | | | [phone] | | | | | | | | +--------+---------+ + + + as of this encounter Visit Diagnoses Not on filein this encounter"
--- OUTSIDE RECORDS SUMMARY | ~2018-05-31 | XMS | Encounter Summary ---
Demographics + + + | Address | [address] | | | [place] [address] | + + + | Home Phone | | + + + | Preferred Language | Unknown | + + + | Marital Status | Single | + + + | Protestant Affiliation | CHR | + + + [...] + + + + + | WAYNE OCLEY | ECON | [address] | | | [place] | | [place], | | | | | [place] [address] | | + + + + + Care Team Providers + +------+ + | Care Assignment Manager Name | Role | Phone | + +------+ + | Thalia Geroges MD | PCP | | + +------+ + Encounter Details +--------+ + + + + | Date | Type | Department | Care Team | Description | +--------+ + + + + | 09/16/ | Procedure | Diagnostic Imaging | | | | 2016 | Pass | at [facility] | | | | | | [address] [place] [address] | | | | | | [place] | | | | | | [address] | | | +--------+ + + + [...] | | | | | | [place] [address] | | | | | | [phone] | | | | | | | | +--------+---------+ + + + | 09/30/ | Office | Hematology & | Vonda Wang, | | | 2017 | Visit | Oncology | [address] | | | | | | [place] | | | | | | [address] | | | | | | [phone] | | | | | | | | +--------+---------+ + + + as of this encounter Visit Diagnoses Not on filein this encounter"
[~2018-05-31 18:11] MED LIST changes: +ADVAIR 250-501 EACH INH; +ASPIRIN325 MG PO; +CARTIA XT240 MG PO; +GLIMEPIRIDE2 MG PO; +JANUVIA50 MG PO; +KEFLEX500 MG PO; +POTASSIUM CHLO20 ME1 PO; +PROAIR HFA8.5 GM INH; +TORSEMIDE20 MG PO; +TRAZODONE HCL100 MG PO; +ZITHROMAX250 MG PO
[2018-05-31] MEDS ORDERED: CLONAZEPAM1 MG PO (19:39)
--- NOTE | 2018-06-01 11:34 | EKG ---
[facility] [address] [place] [address] Signed Normal sinus rhythm Normal ECG No previous ECGs available Confirmed by YUKI EDUARDO MD ([id number]) on 06/01/2018 11:33:23 AM Electronically Signed By: YUKI EDUARDO MD 06/01/18 1134 PATIENT NAME: WYATT COLEY Electrocardiogram DATE OF : [birth year] PHYSICIAN: YUKI EDUARDO MD REPORT #: [id number] REPORT IS CONFIDENTIAL AND NOT TO BE RELEASED WITHOUT AUTHORIZATION
== END 2018-05-31 19:52 | disposition home or self-care (01) ==
LOC: ED 18:11
DX: F41.9 Anxiety disorder, unspecified (principal); I10 Essential (primary) hypertension; J45.909 Unspecified asthma, uncomplicated; J44.9 Chronic obstructive pulmonary disease, unspecified; Z88.0 Allergy status to penicillin; Z79.899 Other long term (current) drug therapy; Z79.82 Long term (current) use of aspirin
CPT/HCPCS: 80053; 84484; 85025; 93005; 93010; 99285